=== PATIENT | female | born 1935 | race Caucasian/White ===

== ENCOUNTER → 2016-06-14 | Outpatient (CLI) | payer MEDICARE, BC | END | disposition home or self-care (01) | LOC: LABWHC1 10:43 | PROVIDERS: ATTEND Internal Medicine Cardiovascular Disease | DX: I48.91 Unspecified atrial fibrillation (principal); Z51.81 Encounter for therapeutic drug level monitoring; Z79.899 Other long term (current) drug therapy | CPT/HCPCS: 36415; 80162 ==

== ENCOUNTER 2019-12-10 14:28 | Inpatient (IN) | payer MEDICARE, BC ==
[2019-12-10 15:09] LABS: Basophils # (A) 0.1 k/uL (0-0.2); Basophils % (A) 1 %; Eosinophils # (A) 0.1 k/uL (0-0.7); Eosinophils % (A) 2 %; HCT 36.5 % (34.0-46.0); HGB 12.1 gm/dL (11.4-16.0); Lymphocytes # (A) 0.6 k/uL (1.0-4.8); Lymphocytes % (A) 12 %; MCH 29.9 pg (25.0-35.0); MCHC 33.1 g/dL (31.0-37.0); MCV 90.5 fL (80.0-100.0); Mean Platelet Volume 6.6; Monocytes # (A) 0.3 k/uL (0-1.0); Monocytes % (A) 6 %; Neutrophils # (A) 4.1 k/uL (1.3-7.7); Neutrophils % (A) 79 %; Platelet Count 165 k/uL (150-450); RBC 4.04 m/uL (3.80-5.40); RDW 14.1 % (11.5-15.5); WBC 5.3 k/uL (3.8-10.6)
[2019-12-10 15:19] LABS: ALT 12 U/L (4-34); AST 28 U/L (14-36); African American GFR (CKD) >90 (>60 ml/min/1.73 sqM); Albumin 3.5 g/dL (3.5-5.0); Alkaline Phosphatase 139 U/L (38-126); Anion Gap 7 mmol/L; Blood Urea Nitrogen 7 mg/dL (7-17); Calcium 8.7 mg/dL (8.4-10.2); Carbon Dioxide 24 mmol/L (22-30); Chloride 99 mmol/L (98-107); Glucose 111 mg/dL (74-99); Magnesium 2.1 mg/dL (1.6-2.3); Non-African American GFR(CKD) 78 (>60 ml/min/1.73 sqM); Potassium 4.1 mmol/L (3.5-5.1); Sodium 130 mmol/L (137-145); Total Bilirubin 0.5 mg/dL (0.2-1.3); Total Protein 6.9 g/dL (6.3-8.2)
[2019-12-10 15:30] LABS: Prothrombin Time 10.5 sec (9.0-12.0)
[2019-12-10 15:32] LABS: Partial Thromboplastin Time 19.5 sec (22.0-30.0)
--- NOTE | 2019-12-10 15:55 | ED ---
Chest Pain HPI - General Chief Complaint: Chest Pain Stated Complaint: chest pain Time Seen by Provider: 12/10/19 14:30 Source: patient, EMS Mode of arrival: EMS Limitations: physical limitation - History of Present Illness Initial Comments: 84-year-old female with past medical history of A. fib, rheumatic heart disease who presents to emergency room with reported chest pain and epigastric abdominal pain. Patient reports to left-sided chest wall pain which does not radiate. It is been constant without any provocative factors. Denies history of coronary disease. No associated cough or hemoptysis. No fevers or chills. Patient also reports epigastric abdominal pain which has caused her to have appetite and poor by mouth intake. She denies any nausea or vomiting. Also reports to constipation without having a bowel movement in 3 days. Son reports to history of peptic ulcer disease. Denies any black or tarry stools. Reports to decrease in urination. No other alleviating, precipitating or modifying factors - Related Data Home Medications Medication Instructions Recorded Confirmed Digoxin [Digitek] 125 mcg PO DAILY 09/14/14 12/10/19 Levothyroxine Sodium [Synthroid] 88 mcg PO DAILY 09/14/14 12/10/19 Losartan [Cozaar] 50 mg PO DAILY 09/14/14 12/10/19 Allergies Allergy/AdvReac Type Severity Reaction Status Date / Time dexamethasone [From TobraDex] Allergy Unknown Verified 12/10/19 18:26 olmesartan medoxomil Allergy Dyspnea Verified 12/10/19 18:26 [From Benicar] Penicillins Allergy Rash/Hives Verified 12/10/19 18:26 sulfamethoxazole Allergy Rash/Hives Verified 12/10/19 18:26 [From Bactrim] tobramycin [From TobraDex] Allergy Unknown Verified 12/10/19 18:26 tramadol HCl [From Ultram] Allergy Unknown Verified 12/10/19 18:26 trimethoprim [From Bactrim] Allergy Rash/Hives Verified 12/10/19 18:26 xibornol Allergy Unknown Verified 12/10/19 18:26 Review of Systems ROS Statement: Those systems with pertinent positive or pertinent negative responses have been documented in the HPI. ROS Other: All systems not noted in ROS Statement are negative. EKG Findings - EKG Comments: EKG Findings:: EKG demonstrates normal sinus rhythm with a ventricular rate of 93. UT interval 162. QRS 74. QTC of 425. No acute ST segment elevation or depressions concerning for ischemic changes Past Medical History Past Medical History: Coronary Artery Disease (CAD), Eye Disorder, GERD/Reflux, Thyroid Disorder History of Any Multi-Drug Resistant Organisms: None Reported Past Surgical History: No Surgical Hx Reported Past Anesthesia/Blood Transfusion Reactions: No Reported Reaction Past Psychological History: No Psychological Hx Reported Smoking Status: Never smoker Past Alcohol Use History: None Reported Past Drug Use History: None Reported - Past Family History Father Family Medical History: No Reported History General Exam Limitations: physical limitation General appearance: alert, in no apparent distress Head exam: Present: atraumatic, normocephalic, normal inspection Eye exam: Present: normal appearance, PERRL, EOMI. Absent: scleral icterus, conjunctival injection, periorbital swelling ENT exam: Present: normal exam, mucous membranes moist Neck exam: Present: normal inspection. Absent: tenderness, meningismus, lymphadenopathy Respiratory exam: Present: normal lung sounds bilaterally. Absent: respiratory distress, wheezes, rales, rhonchi, stridor Cardiovascular Exam: Present: regular rate, normal rhythm, normal heart sounds. Absent: systolic murmur, diastolic murmur, rubs, gallop, clicks GI/Abdominal exam: Present: soft, tenderness (epigastric), normal bowel sounds. Absent: distended, guarding, rebound, rigid Extremities exam: Present: normal inspection, full ROM, normal capillary refill. Absent: tenderness, pedal edema, joint swelling, calf tenderness Back exam: Present: normal inspection Neurological exam: Present: alert, oriented X3, CN II-XII intact Psychiatric exam: Present: normal affect, normal mood Skin exam: Present: warm, dry, intact, normal color. Absent: rash Course Vital Signs 12/10/19 12/10/19 12/10/19 14:30 18:11 18:59 Temperature 98.4 F Pulse Rate 96 77 70 Respiratory 18 18 16 Rate Blood Pressure 151/88 152/79 145/69 O2 Sat by Pulse 95 97 100 Oximetry Chest Pain MDM - MDM Upon arrival patient placed into room 3. A thorough history and physical exam was performed. Patient placed on continuous pulse ox and cardiac monitoring. Peripheral IV was established. Patient was started on 75 mL of normal saline per hour. She is requesting something for pain and therefore was given Tylenol. Laboratory studies were conducted. Patient went for CT of her abdomen and pelvis as well as a chest x-ray. Laboratory studies are remarkable for sodium of 138. CT of the patient's abdomen and pelvis demonstrates [id number] inflammatory changes that they gastroduodenal junction involving gastric antrum and first and second portions of the duodenum. I discussed the results with the patient. I did recommend hospital admission for GI consultation and antibiotics. The patient did agree to this. I discussed the case with Dr. Post who accepted admission. Patient currently awaiting a bed on the floor. Disposition Clinical Impression: Chest pain, Abdominal pain, Duodenitis Disposition: ADMITTED IP TO THIS [facility] Condition: Stable Is patient prescribed a controlled substance at d/c from ED?: No Decision to Admit Reason: Admit from EC Decision Date: 12/10/19 Decision Time: 17:50
--- NOTE | 2019-12-10 16:09 | CT ---
EXAMINATION TYPE: CT abdomen pelvis w con DATE OF EXAM: 12/10/2019 HISTORY: Upper Abdominal pain with constipation CT DLP: 636.7mGycm Automated Exposure Control for Dose Reduction was Utilized. CONTRAST: CT scan of the abdomen and pelvis is performed without oral but with IV Contrast, patient injected wi th 100 mL of Isovue 300. COMPARISON: None. FINDINGS: LUNG BASES: No significant abnormality is appreciated. LIVER/GB: Cholecystectomy clips. Liver somewhat small in size with lobulated contour particularly lef t hepatic lobe, underlying cirrhosis is suspected. No surrounding ascites. Main portal vein patent an d not dilated. PANCREAS: No significant abnormality is seen. SPLEEN: No significant abnormality is seen. ADRENALS: No significant abnormality is seen. KIDNEYS: Symmetrical medullary uptake and excretion without hydronephrosis seen bilaterally. BOWEL: Small varices near diaphragmatic hiatus or gastroesophageal junction. Stomach poorly distended and thus suboptimally evaluated. Moderate gastric wall thickening is present. There is more severe w all thickening in the antrum extending into the first and second portion of the duodenal sweep. There is moderate ill-defined fluid and fat stranding a level of oc hepatis near gastroduodenal junctio n. No free air seen. No well-formed fluid collection or drainable abscess noted. Third and fourth por tion of duodenum appear more normal. No suspicious small or large bowel dilatation otherwise seen. Fe sandra filled prominent cecum noted in the right pelvis.. UTERUS/ADNEXA: Uterus surgically absent or markedly atrophic. Scattered pelvic phleboliths. LYMPH NODES: No greater than 1cm abdominal or pelvic lymph nodes are appreciated. OSSEOUS STRUCTURES: Slight grade 1 anterolisthesis L4 on L5. Spine straightening on sagittal images. Moderate disc space narrowing and vacuum disc phenomenon right L4-L5 level. Mild to moderate disc spa ce narrowing left L5-S1 level. OTHER: Moderate to severe calcified plaque distal abdominal aorta extending into branch vessels. Some ectasia axial image 32. No greater than 3 cm aneurysmal change. IMPRESSION: Moderate to severe inflammatory change at gastroduodenal junction involving gastric antru m and first and second portion of duodenum. No free air seen. No well-formed fluid collection or drai nable abscess noted. Correlate clinically.
[2019-12-10] MEDS ORDERED: ACETAMINOPHEN TAB 500 MG TAB PO STA (16:30)
--- NOTE | 2019-12-10 17:22 | XR ---
EXAMINATION TYPE: XR chest 2V DATE OF EXAM: 12/10/2019 COMPARISON: 11/02/2015 HISTORY: Cough. Chest pain. TECHNIQUE: FINDINGS: Heart is normal. Lungs are clear of consolidation. There are no hilar masses. There is no p leural effusion. There is minimal coarsening of interstitial markings. Bony thorax is intact. There i s possible 1.5 cm nodular density in the left midlung. IMPRESSION: Mild pulmonary fibrotic changes. Lung markings increased compared to old exam. No heart f ailure. Possible new left upper lobe nodule compared to old exam. Shallow oblique views recommended to confir m or exclude a nodule.
[2019-12-10] MEDS ORDERED: metroNIDAZOLE-NS PMX 500 MG in SALINE 1 100ML.BAG IVPB STA (17:42)
[2019-12-10] MEDS ORDERED: cefTRIAXone IN SWFI 1,000 MG/10 ML SYRINGE IVP STA (17:43)
[2019-12-10] MEDS ORDERED: NALOXONE 0.4 MG/ML 1 ML VIAL IV PRN (17:51)
[2019-12-10] MEDS: SODIUM CHLORIDE 0.9% 1,000 ML IV SCH (18:57)
[2019-12-11] MEDS: PIPERACILLIN-TAZOBACTAM 3.375 GM in SODIUM CHLORIDE 0.9% 100 ML IVPB SCH ×3 (01:47→16:22)
--- NOTE | 2019-12-11 02:43 | HP ---
HISTORY AND PHYSICAL CHIEF COMPLAINTS: Chest pain and abdominal pain and constipation. HISTORY OF PRESENT ILLNESS: This 84-year-old woman with a past medical history of multiple medical problems including CAD, history of GERD, hypothyroidism being for Dr. Fair in the outpatient setting complained of chest pain. The pain is mostly on the left side which is localized, sharp in character. The patient also had some abdominal pain and some constipation. A CAT scan of the abdomen was done in the ER which showed moderate to severe inflammatory changes in the gastroduodenal junction involving the gastric antrum, first and second part of the duodenum. The patient was admitted for further evaluation and treatment. There is no history of fever, rigors. No history of headache, loss of consciousness or seizures at this time. PAST MEDICAL HISTORY: History of CAD, eye disorder, GERD, hypothyroidism. MEDICATIONS: Medications prior to admission include home medications are: 1. Digoxin. 2. Folic acid. 3. Levothyroxine. 4. Cozaar. 5. Multivitamins. 6. Narcan. 7. Thiamine. ALLERGIES: DEXAMETHASONE, BENICAR, PENICILLIN, SULFAMETHOXAZOLE, TOBRAMYCIN, ULTRAM, TRIMETHOPRIM, and XIBORNOL. FAMILY HISTORY: No history of heart disease or strokes in the family. SOCIAL HISTORY: No history of smoking. No history of alcohol intake. REVIEW OF SYSTEMS: ENT: Diminished hearing and diminished vision. CARDIOVASCULAR SYSTEM: As mentioned earlier. RESPIRATORY SYSTEM: As mentioned earlier. GI: No nausea, vomiting, diarrhea. : No dysuria. NERVOUS SYSTEM: No numbness or weakness. ALLERGY/IMMUNOLOGY: No asthma or hay fever. MUSCULOSKELETAL: As mentioned earlier. HEMATOLOGY: No history of anemia. ENDOCRINE: As mentioned earlier, hypothyroidism. CONSTITUTIONAL: As mentioned earlier. DERMATOLOGY: Negative. RHEUMATOLOGY: Negative. PSYCHIATRY: As mentioned earlier. PHYSICAL EXAMINATION: The patient is alert and oriented x3. Pulse 70, blood pressure 151/87, respiration 14, temperature 98 degrees, pulse ox 98% on room air. HEENT: Conjunctivae normal. Oral mucosa moist. NECK: No jugular venous distention. No carotid bruit. No lymph node enlargement. CARDIOVASCULAR: S1, S2 muffled. No S3, no S4. RESPIRATORY: Breath sounds diminished at the bases. No rhonchi. No crackles. ABDOMEN: Soft, mild diffuse discomfort on palpation. No guarding. No rigidity. No mass palpable, LEGS: No edema, no swelling. NERVOUS SYSTEM: Higher functions as mentioned earlier. Moves all 4 limbs. No focal motor or sensory deficits. LYMPHATICS: No lymphadenopathy of the neck, axillae or groin. SKIN: No ulcer, rash or bleeding. JOINTS: No active deforming arthropathy. LABORATORY DATA: CBC within normal limits. INR is 1. Sodium is 130. Glucose is 111. ASSESSMENT: 1. Chest pain possible unstable angina possibly musculoskeletal pain. 2. Abdominal pain constipation with moderate to severe inflammatory changes in the gastroduodenal junction involving the gastric antrum and first and second part of the duodenum, possibly gastroduodenitis. Rule out peptic ulcer disease. 3. Hyponatremia. 4. History of coronary artery disease. 5. History of gastroesophageal reflux disease. 6. Hypothyroidism. 7. Remote history of nicotine dependence. 8. FULL CODE. RECOMMENDATIONS AND DISCUSSION: This 84-year-old woman presented with multiple complex medical issues, we will monitor the patient closely. Continue the current medications. Continue symptomatic treatment. Will initiate workup to rule out myocardial infarction, cardiology consultation and troponins. I would also recommend broad-spectrum IV antibiotics. Gastroenterology consultation for the abnormal findings on the CAT scan. I would also recommend surgical evaluation. Otherwise, CT scan of the chest also will be requested. The symptomatic treatment also will be provided. The prognosis guarded because of multiple complex medical issues. Further recommendations to follow. Copy of dictation forwarded to Dr. Fair, who is the primary physician. See orders for details. MMODL / IJN: [id number] /
[2019-12-11 04:42] LABS: Appearance,Urine Clear (Clear); Bilirubin,Urine Negative (Negative); Blood,Urine Negative (Negative); Color,Urine Light Yellow; Glucose,Urine (UA) Negative (Negative); Ketones,Urine Negative (Negative); Leukocyte Esterase,Urine Negative (Negative); Nitrite,Urine Negative (Negative); Protein,Urine Negative (Negative); Specific Gravity,Urine 1.016 (1.001-1.035); Urobilinogen,Urine <2.0 mg/dL (<2.0)
[2019-12-11] MEDS: LEVOTHYROXINE 88 MCG TAB PO SCH (07:09)
[2019-12-11] MEDS ORDERED: DOBUTamine DRIP for NUC MED 500 MG in DEXTROSE/WATER 1 250ML.BAG IV ONE (07:23)
[2019-12-11 07:30] LABS: Basophils # (A) 0.1 k/uL (0-0.2); Basophils % (A) 1 %; Eosinophils # (A) 0.1 k/uL (0-0.7); Eosinophils % (A) 3 %; HCT 34.3 % (34.0-46.0); HGB 11.1 gm/dL (11.4-16.0); Lymphocytes # (A) 0.7 k/uL (1.0-4.8); Lymphocytes % (A) 18 %; MCH 29.3 pg (25.0-35.0); MCHC 32.4 g/dL (31.0-37.0); MCV 90.5 fL (80.0-100.0); Mean Platelet Volume 6.3; Monocytes # (A) 0.3 k/uL (0-1.0); Monocytes % (A) 8 %; Neutrophils # (A) 2.6 k/uL (1.3-7.7); Neutrophils % (A) 67 %; Platelet Count 206 k/uL (150-450); RBC 3.79 m/uL (3.80-5.40); RDW 14.3 % (11.5-15.5); WBC 3.9 k/uL (3.8-10.6)
[2019-12-11 07:44] LABS: Calcium 8.4 mg/dL (8.4-10.2); Digoxin 0.8 ng/mL
[2019-12-11] MEDS: SODIUM CHLORIDE 0.9% 1,000 ML IV SCH (08:26)
[2019-12-11] MEDS: LOSARTAN 50 MG TAB PO SCH (08:34)
[2019-12-11 08:54] LABS: Erythrocyte Sedimentation Rate 35 mm/hr (0-20)
--- NOTE | 2019-12-11 09:45 | P.CRDCN ---
History of Present Illness History of present illness: HISTORY OF PRESENTING ILLNESS This is a pleasant 84-year-old female past medical history significant for paroxysmal atrial fibrillation, dyslipidemia and hypertension. She is not currently on oral anticoagulants. She follows in the office with Dr. Alexander. We have been asked to see in consultation for chest pain. She presented to the hospital with symptoms of left upper quadrant abdominal discomfort that radiated time between the epigastric region in the left precordial region. Her discomfort has been intermittent with no specific aggravating or alleviating factors. She denies associated shortness of breath, dizziness, palpitations, nausea or vomiting. DIAGNOSTICS EKG reveals sinus mechanism left axis deviation with ST depression noted in the precordial leads. Chest xray mild fibrotic changes, no obvious heart failure and possible left upper lobe nodule noted. CT of the abdomen and pelvis reveals moderate to severe inflammatory changes at the gastroduodenal junction. Laboratory reviewed, WBC 3.9, hemoglobin 11.1, platelets 206, ESR 35, sodium 134, potassium 4, creatinine 0.75, magnesium 2.1, cardiac enzymes negative 3 and CRP 13. Current cardiac medications include digoxin 125 g daily and losartan 50 mg daily. Most recent echocardiogram obtained in the office in 2016 reveals preserved LV systolic function with ejection fraction 55%. Most recent stress test performed in the office in 2016 was negative for reversible cardiac ischemia. REVIEW OF SYSTEMS At the time of my exam: CONSTITUTIONAL: Denies fever or chills. CARDIOVASCULAR: Denies chest pain, shortness of breath, orthopnea, PND or palpitations. RESPIRATORY: Denies cough. GASTROINTESTINAL: Denies abdominal pain, diarrhea, constipation, nausea or vomiting. MUSCULOSKELETAL: Denies myalgias. NEUROLOGIC: Denies numbness, tingling or weakness. ENDOCRINE: Denies fatigue, weight change, polydipsia or polyurina. GENITOURINARY: Denies burning, hematuria or urgency with micturation. HEMATOLOGIC: Denies history of anemia or bleeding. PHYSICAL EXAMINATION Blood pressure 153/70 heart rate 77 afebrile and maintaining oxygen saturation on room air. CONSTITUTIONAL: No apparent distress. Frail. HEENT: Head is normocephalic. Pupils are equal, round. Sclerae anicteric. Mucous membranes of the mouth are moist. No JVD. No carotid bruit. CHEST EXAMINATION: Lungs are clear to auscultation. No chest wall tenderness is noted on palpation or with deep breathing. HEART EXAMINATION: Regular rate and rhythm. S1, S2 heard. No murmurs, gallops or rub. ABDOMEN: Soft, nontender. Positive bowel sounds. EXTREMITIES: 2+ peripheral pulses, no lower extremity edema and no calf tenderness. NEUROLOGIC EXAMINATION: Patient is awake, alert and oriented x3. ASSESSMENT Chest pain, atypical for angina. Duodenitis Paroxysmal atrial fibrillation, currently maintaining sinus mechanism. Not currently on long-term anticoagulation. Hypertension Dyslipidemia PLAN An acute coronary event has been ruled out. Obtain 2-D echocardiogram and Doppler study to assess cardiac structure and function. We discussed with the patient undergoing a dobutamine stress echocardiogram to assess for stress-induced ischemia. However the patient states that her age she would prefer medical management regardless of underlying heart disease. We will optimize her medical therapy by initiating aspirin 81 mg daily and atorvastatin 20 mg daily. Consider increasing losartan to 50 mg twice a day if her blood pressure remains elevated. Follow-up in the office closely with Dr. Alexander upon discharge. Ongoing medical management and evaluation of underlying duodenitis and pulmonary nodule. Thank you kindly for this consultation. Nurse Practitioner note has been reviewed, I agree with a documented findings and plan of care. Patient was seen and examined. Past Medical History Past Medical History: Coronary Artery Disease (CAD), Eye Disorder, GERD/Reflux, Thyroid Disorder History of Any Multi-Drug Resistant Organisms: None Reported Past Surgical History: No Surgical Hx Reported Past Anesthesia/Blood Transfusion Reactions: No Reported Reaction Past Psychological History: No Psychological Hx Reported Smoking Status: Former smoker Past Alcohol Use History: None Reported Past Drug Use History: None Reported - Past Family History Father Family Medical History: No Reported History Medications and Allergies Home Medications Medication Instructions Recorded Confirmed Type Digoxin [Digitek] 125 mcg PO DAILY 09/14/14 12/10/19 History Levothyroxine Sodium [Synthroid] 88 mcg PO DAILY 09/14/14 12/10/19 History Losartan [Cozaar] 50 mg PO DAILY 09/14/14 12/10/19 History Allergies Allergy/AdvReac Type Severity Reaction Status Date / Time dexamethasone [From TobraDex] Allergy Unknown Verified 12/10/19 18:26 olmesartan medoxomil Allergy Dyspnea Verified 12/10/19 18:26 [From Benicar] Penicillins Allergy Rash/Hives Verified 12/10/19 18:26 sulfamethoxazole Allergy Rash/Hives Verified 12/10/19 18:26 [From Bactrim] tobramycin [From TobraDex] Allergy Unknown Verified 12/10/19 18:26 tramadol HCl [From Ultram] Allergy Unknown Verified 12/10/19 18:26 trimethoprim [From Bactrim] Allergy Rash/Hives Verified 12/10/19 18:26 xibornol Allergy Unknown Verified 12/10/19 18:26 Physical Exam Vitals: Vital Signs Temp Pulse Pulse Resp BP BP Pulse Ox 12/11/19 08:20 98.2 F 77 14 153/70 99 12/11/19 04:15 97.9 F 72 16 153/72 99 12/10/19 19:25 98 F 70 14 151/87 98 12/10/19 18:59 70 16 145/69 100 12/10/19 18:11 77 18 152/79 97 12/10/19 14:30 98.4 F 96 18 151/88 95 Intake and Output 12/10/19 12/11/19 12/11/19 22:59 06:59 14:59 Output Total 150 600 Balance -150 -600 Output: Urine 150 600 Other: Voiding Method Bedside Commode Bedside Commode Weight 47.627 kg Results 12/11/19 06:43 12/11/19 06:43 Cardiac Enzymes 12/10/19 12/10/19 12/10/19 Range/Units 14:59 14:59 18:38 AST 28 (14-36) U/L Troponin I <0.012 <0.012 (0.000-0.034) ng/mL 12/10/19 Range/Units 21:32 AST (14-36) U/L Troponin I <0.012 (0.000-0.034) ng/mL Coagulation 12/10/19 Range/Units 14:59 PT 10.5 (9.0-12.0) sec APTT 19.5 L (22.0-30.0) sec CBC 12/10/19 12/11/19 Range/Units 14:59 06:43 WBC 5.3 3.9 (3.8-10.6) k/uL RBC 4.04 3.79 L (3.80-5.40) m/uL Hgb 12.1 11.1 L (11.4-16.0) gm/dL Hct 36.5 34.3 (34.0-46.0) % Plt Count 165 206 (150-450) k/uL Comprehensive Metabolic Panel 12/10/19 12/11/19 Range/Units 14:59 06:43 Sodium 130 L 134 L (137-145) mmol/L Potassium 4.1 4.0 (3.5-5.1) mmol/L Chloride 99 104 (98-107) mmol/L Carbon Dioxide 24 27 (22-30) mmol/L BUN 7 6 L (7-17) mg/dL Creatinine 0.71 0.75 (0.52-1.04) mg/dL Glucose 111 H 84 (74-99) mg/dL Calcium 8.7 8.4 (8.4-10.2) mg/dL AST 28 (14-36) U/L ALT 12 (4-34) U/L Alkaline Phosphatase 139 H (38-126) U/L Total Protein 6.9 (6.3-8.2) g/dL Albumin 3.5 (3.5-5.0) g/dL Current Medications Generic Name Dose Route Start Last Admin Trade Name Freq PRN Reason Stop Dose Admin Digoxin 125 mcg 12/11/19 09:00 Digoxin 125 Mcg Tab PO DAILY DESHAUN Folic Acid 1 mg 12/11/19 09:00 Folic Acid 1 Mg Tab PO DAILY EDSHAUN Heparin Sodium (Porcine) 5,000 unit 12/11/19 09:00 Heparin Sodium,Porcine 5,000 Unit/Ml 1 Ml Vial SQ Q12HR DESHAUN Sodium Chloride 1,000 mls @ 75 mls/hr 12/10/19 18:00 12/11/19 08:26 Saline 0.9% IV 75 mls/hr .[id number] DESHAUN Administration Piperacillin Sod/Tazobactam 100 mls @ 25 mls/hr 12/11/19 00:00 12/11/19 01:47 Sod 3.375 gm/ Sodium Chloride IVPB 25 mls/hr Q8HR DESHAUN Administration Dobutamine HCl/Dextrose 500 mg 250 mls @ 14.288 mls/hr 12/11/19 07:23 / IV Solution IV 12/12/19 00:52 .[id number] ONE Protocol 10 MCG/KG/MIN Levothyroxine Sodium 88 mcg 12/11/19 06:30 12/11/19 07:09 Levothyroxine 88 Mcg Tab PO 88 mcg DAILY@0630 DESHAUN Administration Losartan Potassium 50 mg 12/11/19 09:00 12/11/19 08:34 Losartan 50 Mg Tab PO 50 mg DAILY DESHAUN Administration Multivitamins 1 each 12/11/19 09:00 Multivitamins, Thera 1 Each Tab PO DAILY DESHAUN Naloxone HCl 0.2 mg 12/10/19 17:51 Naloxone 0.4 Mg/Ml 1 Ml Vial IV Q2M PRN Opioid Reversal Thiamine HCl 100 mg 12/11/19 09:00 Thiamine 100 Mg Tab PO DAILY DESHAUN Intake and Output 12/10/19 12/11/19 12/11/19 22:59 06:59 14:59 Output Total 150 600 Balance -150 -600 Output: Urine 150 600 Other: Voiding Method Bedside Commode Bedside Commode Weight 47.627 kg 12/11/19 06:43 12/11/19 06:43
[2019-12-11] MEDS: DIGOXIN 125 MCG TAB PO SCH (10:00)
[2019-12-11] MEDS: ATORVASTATIN 20 MG TAB PO SCH (10:00)
[2019-12-11] MEDS: HEPARIN SODIUM,PORCINE 5,000 UNIT/ML 1 ML VIAL SQ SCH ×2 (10:00→20:36)
[2019-12-11] MEDS: ASPIRIN 81 MG PO SCH (10:00)
[2019-12-11] MEDS: FOLIC ACID 1 MG TAB PO SCH (10:01)
[2019-12-11] MEDS: MULTIVITAMINS, THERA 1 EACH TAB PO SCH (10:01)
[2019-12-11] MEDS: THIAMINE 100 MG TAB PO SCH (10:01)
[2019-12-11 10:09] LABS: Cholesterol 152 mg/dL (<200); HDL Cholesterol 44 mg/dL (40-60); LDL Cholesterol,Calculated 90 mg/dL (0-99); Triglycerides 88 mg/dL (<150)
--- NOTE | 2019-12-11 10:16 | ECHOF ---
Referral Reason:cp MEASUREMENTS -------- HEIGHT: 157.5 cm WEIGHT: 47.6 kg BP: IVSd: 1.2 cm (0.6 - 1.1) LVIDd: 3.0 cm (3.9 - 5.3) LVPWd: 1.1 cm (0.6 - 1.1) IVSs: 1.7 cm LVIDs: 1.9 cm LVPWs: 1.8 cm Ao Diam: 2.6 cm (2.0 - 3.7) AV Cusp: 1.4 cm (1.5 - 2.6) LA Diam: 2.4 cm (2.7 - 3.8) MV E Toño: 0.58 m/s MV DecT: 283 ms MV A Toño: 0.84 m/s MV E/A Ratio: 0.69 RAP: 5.00 mmHg RVSP: 23.25 mmHg FINDINGS -------- This was a technically adequate study. The left ventricular size is normal. There is mild concentric left ventricular hypertrophy. Overa ll left ventricular systolic function is normal with, an EF between 55 - 60 %. The right ventricle is normal in size. The left atrial size is normal. The right atrial size is normal. Aortic valve is trileaflet and is mildly thickened. The mitral valve is normal. The mitral valve leaflets are mildly thickened. Mild mitral regurgita tion is present. The tricuspid valve appears structurally normal. Trace tricuspid regurgitation present. Right wes tricular systolic pressure is normal at < 35 mmHg. There is no pulmonic regurgitation present. The aortic root size is normal. IVC Not well visulized. There is no pericardial effusion. CONCLUSIONS -------- 1. The left ventricular size is normal. 2. There is mild concentric left ventricular hypertrophy. 3. Overall left ventricular systolic function is normal with, an EF between 55 - 60 %. 4. Aortic valve is trileaflet and is mildly thickened. 5. The mitral valve leaflets are mildly thickened. 6. Mild mitral regurgitation is present. 7. Trace tricuspid regurgitation present. 8. There is no pericardial effusion. [employer]: Hannah Urbano [facility]
--- NOTE | 2019-12-11 11:07 | CT ---
EXAMINATION TYPE: CT chest wo con DATE OF EXAM: 12/11/2019 COMPARISON: None HISTORY: Chest pain CT DLP: 153.9 mGycm, Automated exposure control for dose reduction was used. CONTRAST: Performed injected with 0 mL of Isovue 300. TECHNIQUE: Axial images were obtained at 5 mm thick sections. Reconstructed images are reviewed on [employer] computer in the coronal plane. FINDINGS: Some mild scarring at the lung apices appears to be present. No enlarged mediastinal or hilar adenopathy is evident. The ascending aorta diameter at the level o f the main pulmonary artery is 3.7 cm. The main pulmonary artery diameter at the bifurcation is 2.2 cm. Calcifications through the aorta. Coronary artery calcification is also present. Limited CT sections are obtained through the upper abdomen. There may be some thickening of the duode num. Correlate for duodenitis. Gallbladder is surgically absent. IMPRESSIONS: 1. No suspicious acute CT chest changes. 2. There appears to be some thickening of the duodenum. Correlate for duodenitis.. Please see CT repo rt CT abdomen pelvis of 12/10/2019
[2019-12-11] MEDS: polyethylene glycoL 3350 17 GM POWD.PACK PO SCH (11:32)
[2019-12-11] MEDS: PANTOPRAZOLE 40 MG TABLET PO SCH (16:23)
--- NOTE | 2019-12-11 20:00 | CONS ---
CONSULTATION DATE OF SERVICE: December 11, 2019. REQUESTING PHYSICIAN: Dr. Fair. REASON FOR CONSULTATION: Epigastric pain and chest pain. HISTORY OF PRESENT ILLNESS: The patient is an 84-year-old pleasant white female who was admitted to the hospital because of atypical chest pain as well as some epigastric pain that started 2 days ago. The pain continued to progressively get worse. She became somewhat nauseated but no emesis. She was seen by Cardiology as she has history of hypertension, hyperlipidemia, and atrial fibrillation, not on any anticoagulation. She was recommended to have a stress test, but she refused this today and hence Cardiology recommended medical management. In the meantime, when she came to the ER, she did have a CT of the abdomen and pelvis done that showed moderate to severe inflammation at the gastric duodenal junction. Hence we are consulted for this issue. The patient denies any prior history of peptic ulcer disease. Denies any recent NSAID use. This morning she is feeling better. The chest pain has resolved. She still has some epigastric discomfort. PAST MEDICAL HISTORY: Significant for hypertension, hyperlipidemia, atrial fibrillation, hypothyroidism. MEDICATIONS: Medications at home: Synthroid and Digitek. ALLERGIES: BACTRIM, ULTRAM, BENICAR, TOBRADEX, AND PENICILLIN. SOCIAL HISTORY: No smoking. No alcohol use. FAMILY HISTORY: Unremarkable. REVIEW OF SYSTEMS: CARDIOPULMONARY: She did have some chest pain but no shortness of breath. : No dysuria or hematuria. MUSCULOSKELETAL unremarkable. SKIN unremarkable. ENDOCRINE unremarkable. PSYCHIATRIC unremarkable. NEUROLOGY: Unremarkable. ENT/VISION: Unremarkable. CONSTITUTIONAL: No recent weight loss. No fever, chills, night sweats. NEUROLOGY: Mild dementia. PAST SURGICAL HISTORY: Unremarkable. PHYSICAL EXAMINATION: She appears comfortable. No apparent distress. Vital signs stable. Blood pressure 132/86, pulse rate 85 per minute, pulse ox 98. HEENT examination unremarkable. Conjunctivae pink. Sclerae anicteric. Oral cavity no lesions. NECK no JVD. No lymph node enlargement. CHEST was clear to auscultation. HEART: Regular rate and rhythm. ABDOMEN: Soft. There was mild tenderness in the epigastric area. Rest of the abdomen was benign. Bowel sounds are positive. No organomegaly. EXTREMITIES: No pedal edema. SKIN no rashes. NEUROLOGIC: Alert and oriented x3. No focal deficits. LABS: From today WBC 3.9, hemoglobin 11.1, platelets normal. Basic metabolic panel is within normal limits. ALT/AST, T-bilirubin and alkaline phosphatase are normal. CT abdomen showed mild to moderate to severe inflammatory changes at the gastric duodenal junction. Rule out peptic ulcer disease. IMPRESSION: 1. This is a patient who presents to the hospital with chest pain as well as epigastric pain that started yesterday and symptoms currently have much improved. She was seen by Cardiology who recommended a stress test, but patient refused it at this time. Troponins negative. CT scan of the abdomen showed moderate to severe thickening of the gastric duodenal junction suspicious for peptic ulcer disease. The patient clinically has improved. Hemoglobin stable at 11.8 g/dL. 2. History of hypertension. 3. History of hyperlipidemia. RECOMMENDATIONS: 1. Start on Protonix 40 mg daily. 2. Clear liquid diet. 3. Proceed with an upper endoscopy tomorrow. I discussed with the patient benefits and complications of the procedure and she is agreeable to it. Thank you for this consultation. MMROMANL / SHANIKAN: [id number] /
--- NOTE | 2019-12-11 21:44 | PN ---
PROGRESS NOTE DATE OF SERVICE: 12/11/2019. This 84-year-old woman was admitted with left-sided chest pain and has abdominal discomfort. Patient had significant CT scan abnormalities including x-rays with thickening of the gastric duodenal junction and duodenum, indicating possibly gastric duodenitis or even peptic ulcer disease. The patient was started on broad-spectrum IV antibiotics. Cardiology is also following the patient regarding the chest pain and stress test has been recommended. Gastroenterology has recommended Endoscopies. The overall prognosis remains extremely guarded in this elderly individual with the above-mentioned findings and because of that reason, I would strongly recommend the patient to be admitted at least for more than 2 full nights as a full admit to evaluate and treat the above-mentioned life-threatening medical conditions. We will await the results from the solutions delivery consultant. Otherwise, other than that, once again, the patient will require more than 2 nights to diagnose and treat above-mentioned medical issues, which could not be done as an outpatient, so once again recommend full admit. See orders for further details. The patient is on IV Zosyn at this time. MMODL / IJN: [id number] /
--- NOTE | 2019-12-11 21:44 | PN ---
PROGRESS NOTE DATE OF SERVICE: 12/11/2019 This 84-year-old woman was admitted with chest pain, abdominal discomfort, also had abnormal CT scan findings about thickening of the around the duodenal and gastroduodenal junction. Cardiology saw the patient and recommend a stress test, but the patient apparently refused it. A 2D echo with Doppler showed ejection fraction 50 to 60% and minimal valvular abnormalities. A D-dimer was not available. Chest CT scan showed no suspicious changes. Some thickening of the duodenum was also noted. Gastroenterology following the patient closely. Past medical history reviewed. REVIEW OF SYSTEMS: Cardiovascular system: As mentioned earlier. Respiratory: As mentioned earlier. GI: As mentioned earlier. : No nausea or vomiting. NERVOUS SYSTEM: No numbness or weakness. CURRENT MEDICATIONS: Aspirin 81 mg p.o. daily Lipitor, Lanoxin, folic acid, heparin, lactated Ringer's, multivitamins, Narcan, Protonix and Zosyn. Doses reviewed. PHYSICAL EXAM: Patient is alert and oriented x3. Pulse is 77, blood pressure 150/70, respiration 14, temperature 98.2, pulse ox 99% on room air. HEENT is conjunctivae normal. NECK: No JVD. CARDIOVASCULAR: S1, S2 muffled. RESPIRATIONS: Breath sounds diminished in the bases. A few scattered rhonchi and crackles. ABDOMEN: Soft, nontender. No mass palpable. Minimal discomfort in the left upper abdomen. LEGS are no edema. No swelling. NERVOUS SYSTEM: No focal deficits. LABS: Hemoglobin 11.1. ESR is 35. Sodium is 134, and C-reactive protein is 13. Lipid panel is normal. Digoxin is normal. ASSESSMENT: 1. Chest pain, possible unstable angina versus musculoskeletal pain. 2. Abdominal pain and constipation with moderate severe inflammatory changes in the gastroduodenal junction involving the gastric antrum and the first and second part of the duodenum, possibly gastric duodenitis, rule out peptic ulcer disease. 3. Hyponatremia. 4. History of coronary artery disease. 5. History of gastroesophageal reflux disease. 6. Hypothyroidism. 7. Remote history of nicotine dependence. 8. FULL CODE. RECOMMENDATIONS AND DISCUSSION: In this 84-year-old woman who presented with multiple complex medical issues, we will monitor the patient closely. Continue the current medications and symptomatic treatment as mentioned. As mentioned earlier, the patient refused stress test. Treat the patient medically. Otherwise, broad-spectrum IV antibiotics for the abnormal CT scan findings. We will follow the patient closely with Gastroenterology for possible endoscopes. Otherwise, prognosis extremely guarded in this elderly individual who is probably not very keen on doing further and extensive evaluations or interventions, but the patient is apparently willing for endoscopy at this time. Further recommendations to follow. MMROMANL / SHANIKAN: [id number] /
[2019-12-12] MEDS: SODIUM CHLORIDE 0.9% 1,000 ML IV SCH ×2 (00:21→15:07)
[2019-12-12] MEDS: PIPERACILLIN-TAZOBACTAM 3.375 GM in SODIUM CHLORIDE 0.9% 100 ML IVPB SCH ×3 (00:35→17:03)
[2019-12-12] MEDS ORDERED: LIDOCAINE 1% (10MG/ML) FOR IV START INTRADERMA PRN (05:00)
[2019-12-12] MEDS ORDERED: LACTATED RINGERS 1,000 ML IV SCH (05:00)
[2019-12-12] MEDS: LEVOTHYROXINE 88 MCG TAB PO SCH (05:59)
[2019-12-12 06:51] LABS: Basophils % (A) 1 %; Eosinophils # (A) 0.2 k/uL (0-0.7); Eosinophils % (A) 3 %; HCT 30.9 % (34.0-46.0); HGB 10.2 gm/dL (11.4-16.0); Lymphocytes # (A) 0.9 k/uL (1.0-4.8); Lymphocytes % (A) 20 %; MCHC 33.1 g/dL (31.0-37.0); MCV 90.5 fL (80.0-100.0); Mean Platelet Volume 6.5; Monocytes # (A) 0.3 k/uL (0-1.0); Monocytes % (A) 7 %; Neutrophils # (A) 3.2 k/uL (1.3-7.7); Neutrophils % (A) 68 %; Platelet Count 196 k/uL (150-450); RBC 3.41 m/uL (3.80-5.40); RDW 14.6 % (11.5-15.5); WBC 4.7 k/uL (3.8-10.6)
[2019-12-12 07:02] LABS: Calcium 7.7 mg/dL (8.4-10.2); Potassium 3.7 mmol/L (3.5-5.1)
[2019-12-12] MEDS: DIGOXIN 125 MCG TAB PO SCH (09:23)
[2019-12-12] MEDS: PANTOPRAZOLE 40 MG TABLET PO SCH ×2 (09:23→17:14)
[2019-12-12] MEDS: HEPARIN SODIUM,PORCINE 5,000 UNIT/ML 1 ML VIAL SQ SCH ×2 (09:23→20:44)
--- NOTE | 2019-12-12 10:46 | P.PN ---
Subjective Progress Note Date: 12/12/19 CHIEF COMPLAINT: Chest pain HISTORY OF PRESENT ILLNESS: Patient examined this morning at the bedside. She denies chest pain or shortness of breath. She states she is tired and did not sleep well yesterday. She is scheduled for EGD today. Blood pressure stable this morning at 113/68. Patient underwent echocardiogram yesterday revealing ejection fraction between 55 and 60%, mild mitral regurgitation, and trace tricuspid regurgitation. PHYSICAL EXAM: VITAL SIGNS: Reviewed. GENERAL: Well-developed in no acute distress. NECK: Supple. No JVD or thyromegaly LUNGS: Respirations even and unlabored. Lungs essentially clear to auscultation bilaterally. HEART: Regular rate and rhythm. S1 and S2 heard. EXTREMITIES: Normal range of motion. No clubbing or cyanosis. Peripheral pulses intact. No lower extremity edema ASSESSMENT: Chest pain, atypical for angina. Duodenitis Paroxysmal atrial fibrillation, currently maintaining sinus mechanism. Not currently on long-term anticoagulation. Hypertension Dyslipidemia PLAN: Discussed Dobutamine stress echocardiogram to assess for stress-induced ischemia yesterday. However patient declined to have stress test performed. Continue current medical management. Continue telemetry monitoring and blood pressure monitoring. Patient to undergo EGD today with Dr. Romano Patient is stable for discharge from a cardiac standpoint. We will defer to internal medicine. We will sign off. Nurse practitioner note has been reviewed by physician. Signing provider agrees with the documented findings, assessment, and plan of care. Objective - Vital Signs Vital signs: Vital Signs Temp 98.1 F 12/12/19 08:18 Pulse 85 12/12/19 08:18 Resp 16 12/12/19 08:18 BP 113/68 12/12/19 08:18 Pulse Ox 98 12/12/19 08:18 Intake & Output 12/11/19 12/12/19 12/12/19 18:59 06:59 18:59 Intake Total 200 100 Output Total 575 Balance 200 -475 Intake: Oral 200 100 Output: Urine 575 Other: Voiding Method Bedside Commode Bedside Commode # Voids 2 1 - Labs CBC & Chem 7: 12/12/19 06:26 12/12/19 06:26 Labs: Abnormal Lab Results - Last 24 Hours (Table) 12/12/19 12/12/19 Range/Units 06:26 06:26 RBC 3.41 L (3.80-5.40) m/uL Hgb 10.2 L (11.4-16.0) gm/dL Hct 30.9 L (34.0-46.0) % Lymphocytes # 0.9 L (1.0-4.8) k/uL Sodium 134 L (137-145) mmol/L Calcium 7.7 L (8.4-10.2) mg/dL Microbiology - Last 24 Hours (Table) 12/10/19 18:40 Blood Culture - Preliminary Blood No Growth after 24 hours
[2019-12-12] MEDS ORDERED: PROPOFOL 10 MG/ML 20 ML VIAL IV ONE (14:27)
[2019-12-12] MEDS ORDERED: LIDOCAINE 1% INJ 10MG/ML (20 ML MDV) ONE (14:27)
[2019-12-12] MEDS ORDERED: IV FLUID CONTINUATION 1,000 ML IV ONE (14:29)
--- NOTE | 2019-12-12 14:39 | P.PCN ---
Date of Procedure: 12/12/19 Procedure(s) Performed: BRIEF HISTORY: Patient is 84-year-old, pleasant, white female scheduled for an upper endoscopy as a part of evaluation of epigastric and atypical chest pain of [address] of abdomen showed moderate to severe thickening of the gastroduodenal junction and hence he scheduled for an upper endoscopy to evaluate for peptic ulcer disease. PROCEDURE PERFORMED: Esophagogastroduodenoscopy biopsy. PREOPERATIVE DIAGNOSIS: Epigastric pain and chest Pain. IV sedation per anesthesia. PROCEDURE: After informed consent was obtained, the patient was brought into the endoscopy unit. IV sedation was administered by Anesthesia under continuous monitoring. Initially the Olympus GIF-140 video endoscope was inserted into the mouth. Esophagus intubated without any difficulty. It was gradually advanced into the stomach and duodenum and carefully examined. IN THE BULB OF THE DUODENUM THERE WAS A CIRCUMFERENTIAL LARGE ULCERATION IDENTIFIED WITH NO ACTIVE BLEEDING.The second part of the duodenum appeared normal. The scope at this time was withdrawn to the stomach, adequately insufflated with air, and upon careful examination, mucosa of the antrum, gASTRITIS AND BIOPSIES WERE DONE FROM THIS AREA. tHE body, cardia and the fundus appeared normal. The scope was then withdrawn into the esophagus. SMALL HIATAL HERNIA NOTED. The GE junction was located at 39 cm from the incisors. The esophagus appeared normal. There were no erosions or ulcerations seen and the patient tolerated the procedure well. IMPRESSION: 1. Circumferential duodenal bulbar ulcer with no active bleeding 2..Small hiatal hernia and LA grade a reflux esophagitis RECOMMENDATIONS: The findings of this examination were discussed with the patient as well as a family. She will advised to follow with the biopsy results. She'll continue with Protonix 40 mg twice daily and avoid NSAIDs.
--- NOTE | 2019-12-12 15:53 | PN ---
PROGRESS NOTE DATE OF SERVICE: 12/12/2019 This 84-year-old woman who was admitted with chest pain, also had abdominal symptoms. Patient also had abdominal CT scan also. Surgical evaluation has been sought. No chest pain. No palpitations. No fever. The patient is on broad-spectrum IV antibiotics. PHYSICAL EXAMINATION: Alert and oriented x2. Pulse 85. Blood pressure 130/60, respirations 16, temperature 98.1, pulse ox 98% on room air. HEENT: Conjunctivae normal. NECK: No JVD. CARDIOVASCULAR: S1, S2 muffled. RESPIRATORY: Breath sounds diminished in the bases. A few scattered rhonchi. No crackles. ABDOMEN: Soft, nontender. No guarding. No rigidity. No mass palpable. LEGS: No edema. No swelling. NERVOUS SYSTEM: No focal deficits. LABS: WBC 4.2, hemoglobin 10.2, sodium is 134 and CRP is 13. ASSESSMENT: 1. Chest pain, possible unstable angina versus musculoskeletal pain. 2. Abdominal pain and constipation with moderate severe inflammatory changes in the gastric duodenal junction involving the gastric antrum and 1st the 2nd part of the duodenum, possibly gastric duodenitis. Rule out peptic ulcer disease. 3. Hyponatremia. 4. History of coronary artery disease. 5. History of gastroesophageal reflux disease. 6. Hypothyroidism. 7. Remote history of nicotine dependence. 8. FULL CODE. RECOMMENDATIONS AND DISCUSSION: In this 84-year-old woman who presented with multiple complex medical issues, we will monitor the patient closely, continue the current medications, management and symptomatic treatment. Medical treatment recommended by Cardiology. Patient refused stress test. I would recommend continue with empiric antibiotics. Closely follow with Gastroenterology and surgery. Guarded prognosis. Further recommendations to follow. MMODL / IJN: [id number] /
[2019-12-12] MEDS: LOSARTAN 50 MG TAB PO SCH (15:56)
[2019-12-12] MEDS: ATORVASTATIN 20 MG TAB PO SCH (15:56)
[2019-12-12] MEDS: FOLIC ACID 1 MG TAB PO SCH (15:56)
[2019-12-12] MEDS: MULTIVITAMINS, THERA 1 EACH TAB PO SCH (15:56)
[2019-12-12] MEDS: THIAMINE 100 MG TAB PO SCH (15:56)
[2019-12-12] MEDS: ASPIRIN 81 MG PO SCH (17:14)
[2019-12-12] MEDS: polyethylene glycoL 3350 17 GM POWD.PACK PO SCH (17:14)
[2019-12-13] MEDS: SODIUM CHLORIDE 0.9% 1,000 ML IV SCH ×2 (00:33→20:10)
[2019-12-13] MEDS: PIPERACILLIN-TAZOBACTAM 3.375 GM in SODIUM CHLORIDE 0.9% 100 ML IVPB SCH ×3 (00:33→16:27)
[2019-12-13] MEDS: PANTOPRAZOLE 40 MG TABLET PO SCH ×2 (07:00→16:39)
[2019-12-13] MEDS: LEVOTHYROXINE 88 MCG TAB PO SCH (07:00)
[2019-12-13 07:49] LABS: Basophils % (A) 1 %; Eosinophils # (A) 0.2 k/uL (0-0.7); Eosinophils % (A) 4 %; HCT 31.4 % (34.0-46.0); HGB 9.9 gm/dL (11.4-16.0); Lymphocytes # (A) 0.8 k/uL (1.0-4.8); Lymphocytes % (A) 20 %; MCHC 31.4 g/dL (31.0-37.0); MCV 92.4 fL (80.0-100.0); Mean Platelet Volume 7.1; Monocytes # (A) 0.3 k/uL (0-1.0); Monocytes % (A) 6 %; Neutrophils # (A) 2.7 k/uL (1.3-7.7); Neutrophils % (A) 66 %; Platelet Count 179 k/uL (150-450); RDW 14.5 % (11.5-15.5); WBC 4.1 k/uL (3.8-10.6)
[2019-12-13 08:04] LABS: Calcium 7.7 mg/dL (8.4-10.2); Potassium 3.6 mmol/L (3.5-5.1)
--- NOTE | 2019-12-13 09:23 | P.GSCN ---
History of Present Illness Consult date: 12/13/19 Reason for Consult: Duodenal ulcer History of present illness: 74-year-old female who was admitted to the emergency room with complaints of abd ominal pain. Patient was worked up found have evidence of duodenal ulcer. She underwent EGD yesterday. Patient is currently tolerating some soft diet. She is edentulous and does not have her teeth with her. She wished to go home. Past Medical History Past Medical History: Coronary Artery Disease (CAD), Eye Disorder, GERD/Reflux, Thyroid Disorder History of Any Multi-Drug Resistant Organisms: None Reported Past Surgical History: No Surgical Hx Reported Past Anesthesia/Blood Transfusion Reactions: No Reported Reaction Past Psychological History: No Psychological Hx Reported Smoking Status: Never smoker Past Alcohol Use History: None Reported Past Drug Use History: None Reported - Past Family History Father Family Medical History: No Reported History Medications and Allergies Home Medications Medication Instructions Recorded Confirmed Type Digoxin [Digitek] 125 mcg PO DAILY 09/14/14 12/10/19 History Levothyroxine Sodium [Synthroid] 88 mcg PO DAILY 09/14/14 12/10/19 History Losartan [Cozaar] 50 mg PO DAILY 09/14/14 12/10/19 History Allergies Allergy/AdvReac Type Severity Reaction Status Date / Time dexamethasone [From TobraDex] Allergy Unknown Verified 12/10/19 18:26 olmesartan medoxomil Allergy Dyspnea Verified 12/10/19 18:26 [From Benicar] Penicillins Allergy Rash/Hives Verified 12/10/19 18:26 sulfamethoxazole Allergy Rash/Hives Verified 12/10/19 18:26 [From Bactrim] tobramycin [From TobraDex] Allergy Unknown Verified 12/10/19 18:26 tramadol HCl [From Ultram] Allergy Unknown Verified 12/10/19 18:26 trimethoprim [From Bactrim] Allergy Rash/Hives Verified 12/10/19 18:26 xibornol Allergy Unknown Verified 12/10/19 18:26 Surgical - Exam Vital Signs Temp Pulse Resp BP Pulse Ox 98.4 F 96 18 151/88 95 12/10/19 14:30 12/10/19 14:30 12/10/19 14:30 12/10/19 14:30 12/10/19 14:30 - General well developed, no distress - Eyes PERRL - Abdomen Minimal epigastric tenderness Abdomen: soft Results - Labs 12/13/19 07:20 12/13/19 07:20 Abnormal Lab Results - Last 24 Hours (Table) 12/13/19 12/13/19 Range/Units 07:20 07:20 RBC 3.40 L (3.80-5.40) m/uL Hgb 9.9 L (11.4-16.0) gm/dL Hct 31.4 L (34.0-46.0) % Lymphocytes # 0.8 L (1.0-4.8) k/uL Chloride 110 H (98-107) mmol/L Calcium 7.7 L (8.4-10.2) mg/dL Microbiology - Last 24 Hours (Table) 12/10/19 18:40 Blood Culture - Preliminary Blood No Growth after 48 hours Diabetes panel 12/13/19 Range/Units 07:20 Sodium 137 (137-145) mmol/L Potassium 3.6 (3.5-5.1) mmol/L Chloride 110 H (98-107) mmol/L Carbon Dioxide 23 (22-30) mmol/L BUN 7 (7-17) mg/dL Creatinine 0.78 (0.52-1.04) mg/dL Glucose 83 (74-99) mg/dL Calcium 7.7 L (8.4-10.2) mg/dL Calcium panel 12/13/19 Range/Units 07:20 Calcium 7.7 L (8.4-10.2) mg/dL Pituitary panel 12/13/19 Range/Units 07:20 Sodium 137 (137-145) mmol/L Potassium 3.6 (3.5-5.1) mmol/L Chloride 110 H (98-107) mmol/L Carbon Dioxide 23 (22-30) mmol/L BUN 7 (7-17) mg/dL Creatinine 0.78 (0.52-1.04) mg/dL Glucose 83 (74-99) mg/dL Calcium 7.7 L (8.4-10.2) mg/dL Adrenal panel 12/13/19 Range/Units 07:20 Sodium 137 (137-145) mmol/L Potassium 3.6 (3.5-5.1) mmol/L Chloride 110 H (98-107) mmol/L Carbon Dioxide 23 (22-30) mmol/L BUN 7 (7-17) mg/dL Creatinine 0.78 (0.52-1.04) mg/dL Glucose 83 (74-99) mg/dL Calcium 7.7 L (8.4-10.2) mg/dL Assessment and Plan Assessment: New diagnosis of duodenal ulcer. Patient should have her calorie count observed. Is unclear she is able to tolerate enough diet. We will follow with you.
[2019-12-13] MEDS: THIAMINE 100 MG TAB PO SCH (09:39)
[2019-12-13] MEDS: ATORVASTATIN 20 MG TAB PO SCH (09:39)
[2019-12-13] MEDS: LOSARTAN 50 MG TAB PO SCH (09:39)
[2019-12-13] MEDS: DIGOXIN 125 MCG TAB PO SCH (09:39)
[2019-12-13] MEDS: ASPIRIN 81 MG PO SCH (09:39)
[2019-12-13] MEDS: FOLIC ACID 1 MG TAB PO SCH (09:39)
[2019-12-13] MEDS: MULTIVITAMINS, THERA 1 EACH TAB PO SCH (09:39)
[2019-12-13] MEDS: polyethylene glycoL 3350 17 GM POWD.PACK PO SCH (09:40)
[2019-12-13] MEDS: HEPARIN SODIUM,PORCINE 5,000 UNIT/ML 1 ML VIAL SQ SCH ×2 (09:40→20:13)
--- NOTE | 2019-12-13 10:34 | PN ---
PROGRESS NOTE DATE OF DICTATION: December 13, 2019 The patient is an 84-year-old pleasant white female admitted to hospital with epigastric and atypical chest pain. She had an upper endoscopy done yesterday that revealed a large 3-4 cm circumferential duodenal bulbar ulcer with mild narrowing of the duodenal lumen. The patient denies any bleeding. No abdominal pain. She is feeling better. She remains on Protonix 40 mg twice daily. PHYSICAL EXAMINATION: Appears comfortable. No apparent distress. VITAL SIGNS: Stable. Blood pressure is 128/88, pulse rate 86 per minute and afebrile. HEENT examination unremarkable. Conjunctivae pink. Sclerae anicteric. Oral cavity no lesions. NECK no JVD. No lymph node enlargement. Chest was clear to auscultation. HEART: Regular rate and rhythm. ABDOMEN: Soft. Bowel sounds are positive. No organomegaly. EXTREMITIES: No pedal edema. SKIN no rashes. NEURO: She is alert, oriented to name but not to place. LABS: Labs done from today WBC 7.5, hemoglobin 9.9. Rest of the labs are within normal limits. IMPRESSION: 1. Epigastric pain and atypical chest pain of 2 days duration. EGD done yesterday showed a large circumferential duodenal bulbar ulcer with no active bleeding, status post biopsies which are still pending. Presently on Protonix 40 mg twice daily. 2. Atypical chest pain, resolved. 3. History of coronary artery disease. 4. Gastroesophageal reflux disease. RECOMMENDATIONS: 1. Continue with Protonix 40 mg twice daily. 2. Advance diet as tolerated. 3. Await biopsy results. 4. She can be discharged home with outpatient followup in the office in 3-4 weeks. MMODL / IJN: [id number] /
--- NOTE | 2019-12-13 15:17 | PN ---
PROGRESS NOTE DATE OF SERVICE: 12/13/2019 This 84-year-old woman who was admitted with chest pain also had abdominal pain and significant findings. Dr. Romano has done upper endoscopy yesterday which showed circumferential duodenal bulb ulcer with no active bleeding. A small hiatal hernia with LA grade reflux esophagitis also. Surgery has seen the patient today and recommended continue the current medications. Past medical history reviewed. REVIEW OF SYSTEMS: CARDIOVASCULAR SYSTEM: No angina, palpitations. RESPIRATORY SYSTEM: As mentioned earlier. GI: As mentioned earlier. NERVOUS SYSTEM: No numbness or weakness. CURRENT MEDICATIONS: Reviewed and include: Aspirin, Lipitor, Lanoxin, folic acid, Synthroid, Cozaar, multivitamins, Narcan, Protonix, Zosyn. PHYSICAL EXAMINATION: Patient is alert and oriented times three. Pulse 70, blood pressure 118/60, respirations 16, temperature 98.2, pulse ox 97% on room air. HEENT: Conjunctivae normal. NECK: No JVD. CARDIOVASCULAR: S1, S2 muffled. RESPIRATIONS: Breath sounds diminished in the bases. Scattered rhonchi and crackles. ABDOMEN: Soft, nontender. NERVOUS SYSTEM: No focal deficits. LABS: WBC 4.1, hemoglobin 9.9, sodium 137. ASSESSMENT: 1. Chest pain possible unstable angina versus musculoskeletal pain. 2. Abdominal pain and constipation with moderate severe inflammatory changes in the gastroduodenal junction involving the gastric antrum with the first and second part of the duodenum possibly gastric duodenitis. 3. Circumferential duodenal ulcer in the EGD. 4. Hyponatremia. 5. History of coronary artery disease. 6. History of gastroesophageal reflux disease. 7. Hypothyroidism. 8. Remote history of nicotine dependence. 9. FULL CODE. RECOMMENDATIONS AND DISCUSSION: Recommend to continue the current medications, management and symptomatic treatment. Otherwise, increase the dose of Protonix to b.i.d. Add Carafate to the current regimen. Continue to monitor. Repeat labs. Otherwise, we will stop the IV fluids. Patient is extremely keen on going home at this time. Closely follow with multiple consultants. Further recommendations to follow. MMODL / IJN: [id number] /
[2019-12-13] MEDS: SUCRALFATE 1 GM TAB PO SCH ×2 (16:39→20:13)
[2019-12-14] MEDS: PIPERACILLIN-TAZOBACTAM 3.375 GM in SODIUM CHLORIDE 0.9% 100 ML IVPB SCH ×2 (00:19→08:55)
[2019-12-14] MEDS: PANTOPRAZOLE 40 MG TABLET PO SCH (06:12)
[2019-12-14] MEDS: LEVOTHYROXINE 88 MCG TAB PO SCH (06:13)
[2019-12-14] MEDS: SUCRALFATE 1 GM TAB PO SCH ×2 (06:13→11:57)
[2019-12-14 08:24] VITALS: BP 156/77; PULSE 72; RESP 16; TEMP 98.1
[2019-12-14] MEDS: HEPARIN SODIUM,PORCINE 5,000 UNIT/ML 1 ML VIAL SQ SCH (08:55)
[2019-12-14] MEDS: ASPIRIN 81 MG PO SCH (08:55)
[2019-12-14] MEDS: THIAMINE 100 MG TAB PO SCH (08:56)
[2019-12-14] MEDS: ATORVASTATIN 20 MG TAB PO SCH (08:56)
[2019-12-14] MEDS: LOSARTAN 50 MG TAB PO SCH (08:56)
[2019-12-14] MEDS: DIGOXIN 125 MCG TAB PO SCH (08:56)
[2019-12-14] MEDS: polyethylene glycoL 3350 17 GM POWD.PACK PO SCH (08:56)
[2019-12-14] MEDS: FOLIC ACID 1 MG TAB PO SCH (08:56)
[2019-12-14] MEDS: MULTIVITAMINS, THERA 1 EACH TAB PO SCH (08:56)
--- NOTE | 2019-12-14 09:33 | P.PN ---
Progress Note - Text Progress Note Date: 12/14/19 Patient is resting comfortably. She has had some oral intake. She has had minimal epigastric pain. On exam her vital signs are stable. Abdomen soft. Recent diagnosis of duodenal ulcer. Patient will be discharged home per medicine. She'll follow-up in the office as an outpatient.
[2019-12-14 09:34] LABS: Basophils % (A) 1 %; Eosinophils # (A) 0.2 k/uL (0-0.7); Eosinophils % (A) 7 %; HCT 32.7 % (34.0-46.0); HGB 10.5 gm/dL (11.4-16.0); Lymphocytes # (A) 0.9 k/uL (1.0-4.8); Lymphocytes % (A) 28 %; MCH 29.4 pg (25.0-35.0); MCV 91.8 fL (80.0-100.0); Mean Platelet Volume 6.9; Monocytes # (A) 0.3 k/uL (0-1.0); Monocytes % (A) 8 %; Neutrophils # (A) 1.7 k/uL (1.3-7.7); Neutrophils % (A) 53 %; Platelet Count 175 k/uL (150-450); RBC 3.56 m/uL (3.80-5.40); RDW 14.9 % (11.5-15.5); WBC 3.2 k/uL (3.8-10.6)
[2019-12-14 09:38] LABS: Potassium 3.9 mmol/L (3.5-5.1)
--- NOTE | 2019-12-14 11:16 | PN ---
PROGRESS NOTE DATE OF DICTATION: December 14, 2019 Patient is an 84-year-old pleasant white female admitted to hospital with epigastric pain and chest pain. She had an EGD done 2 days ago that showed a large duodenal bulbar ulcer with no active bleeding. She is presently on Protonix 40 mg twice daily. She is doing well. Abdominal pain has resolved. No nausea, no vomiting. Tolerating diet well. PHYSICAL EXAMINATION: She appears comfortable. No apparent distress. Vital signs stable. Blood pressure is 156/77, pulse rate 72, temperature 98.1. HEENT examination unremarkable. Conjunctivae pink. Sclerae anicteric. Oral cavity no lesions. NECK no JVD or lymph node enlargement. CHEST was clear to auscultation. HEART: Regular rate and rhythm. ABDOMEN: Soft, it was nontender, nondistended. Bowel sounds are positive. EXTREMITIES: No pedal edema. NEUROLOGIC: Alert and oriented x3. No focal deficits. LABS: Labs done from today: WBC 3.2, hemoglobin 10.5, platelets normal. Basic metabolic panel is within normal limits. IMPRESSION: 1. Large duodenal bulbar ulcer with no active bleeding, presently on Protonix 40 mg twice daily, doing well. Has no symptoms. 2. Mild anemia. Hemoglobin stable at 10.5 g/dL. 3. Atypical chest pain, resolved. RECOMMENDATIONS: 1. Continue with Protonix 40 mg twice daily. 2. Avoid NSAIDs. 3. Monitor CBC daily. 4. Advance diet as tolerated. 5. We will follow with you closely. Thank you for this consultation. MMROMANL / SHANIKAN: [id number] /
--- NOTE | 2019-12-15 07:12 | DS ---
DISCHARGE SUMMARY DATE OF SERVICE: 12/14/2019 FINAL DIAGNOSES: 1. Chest pain possible musculoskeletal, myocardial infarction ruled out, present on admission. 2. Abdominal pain and constipation, moderate severe inflammatory changes in the gastroduodenal junction involving the gastric antrum with the first and second part of the duodenum possibly gastroduodenitis with circumferential duodenal ulcer seen on the EGD. 3. Hyponatremia. 4. History of coronary artery disease. 5. History of gastroesophageal reflux disease. 6. Hypothyroidism. 7. Remote history of nicotine dependence. 8. FULL CODE. DISCHARGE DISPOSITION: The patient will be discharged in stable condition with guarded prognosis. Total time taken 35 minutes. HISTORY OF PRESENT ILLNESS: This 84-year-old woman with a past medical history of multiple medical problems admitted with chest pain, some abnormal CT scan findings. The patient refused the stress testing. Cardiology recommended medical treatment. An EGD was done and showed ulcers, recommended conservative line of treatment. Because of abnormal CT scan findings as mentioned earlier, surgical evaluation has been sought also. Otherwise, the patient was seen by Infectious Disease as well. On exam, vitals are stable. CARDIOVASCULAR: S1, S2 muffled. ABDOMEN: Soft. DISCHARGE ADVICE AND MEDICATIONS: 1. Diet is cardiac. 2. Activity limited until followup. 3. Follow up with Dr. Fair in 2 to 3 days. 4. Follow up with Gastroenterology as recommended. 5. Follow up with Surgery as recommended. 6. Follow with Infectious Disease and Cardiology as recommended. Medications are: 1. Cozaar 50 mg daily. 2. No NSAIDs. 3. Digitek 125 mcg p.o. daily. 4. Synthroid 88 mcg p.o. daily. 5. Carafate 1 gram a.c. and at bedtime. 6. Lipitor 20 mg daily. 7. MiraLAX 17 grams daily p.r.n. 8. Multivitamins one p.o. daily. 9. Protonix 40 mg p.o. b.i.d. 10.Antibiotic per Dr. Jose. Once again the patient will be discharged in a stable condition with guarded prognosis. MMODL / IJN: [id number] / MTDD
--- NOTE | 2019-12-16 08:13 | CDI ---
Documentation Clarification Form Date: 12/16/19 From: Lynn Vicente CCS Phone: If you have a question about this query, please contact Emili Ervin, [employer] Operators Supervisor at [phone] between 8am and 5pm. Admit Date: 12/11/19 Discharge Date:12/14/19 Patient Name: Anusha Parikh Visit Number: [id number] ATTENTION: The Clinical Documentation Specialists (CDI) and [facility] Coding Staff appreciate your assistance in clarifying documentation. Please respond to the clarification below the line at the bottom and electronically sign. The CDI & [facility] Coding staff will review the response and follow-up if needed. Please note: Queries are made part of the Legal Health Record. If you have any questions, please contact the author of this message via ITS. Dear Dr. Gill, EGD documents: Circumferential duodenal bulbar ulcer with no active bleeding Patient presents with epigastric and chest pain. History/Risk Factors: CAD, HTN, Hypothyroid, AFIB, Gastritis Clinical Indicators: Epigastric pain Radiology findings: Moderate to severe inflammatory change at gastroduodenal junction involving gastric antrum and first and second portion of duodenum.No free air seen.No well-formed fluid collection or drainable abscess noted. Vital Signs: BP 145/69, RR 16, MI 70, O2 Sat 100 Treatment: Protonix 40 mg PO AC-BID, Carafate 1 gm PO ACHS Consults: Rosalina In your professional opinion, can you please clarify duodenal ulcer as: Acute Chronic Other, please specify Unable to determine Acute MTDD
--- NOTE | 2019-12-16 08:23 | CDI ---
Documentation Clarification Form Date: 12/16/19 From: Lynn Vicente CCS Phone: If you have a question about this query, please contact Emili Ervin, Disability Aide at [phone] between 8am and 5pm. Admit Date: 12/11/19 Discharge Date: 12/14/19 Patient Name: Anusha Parikh Visit Number: [id number] ATTENTION: The Clinical Documentation Specialists (CDI) and [facility] Coding Staff appreciate your assistance in clarifying documentation. Please respond to the clarification below the line at the bottom and electronically sign. The CDI & [facility] Coding staff will review the response and follow-up if needed. Please note: Queries are made part of the Legal Health Record. If you have any questions, please contact the author of this message via ITS. Dear Dr. Gill, Anemia is documented in the PN 12/13. History/Risk Factors: Duodenal ulcer, Esophagitis, Gastritis, HTN, GERD, AFIB Clinical indicators: Anemia Hemoglobin: 3.79, 3.41, 3.40 Hematocrit: 30.9, 31.4. 32.7 EGD: 1.Circumferential duodenal bulbar ulcer with no active bleeding 2.Small hiatal hernia and LA grade a reflux esophagitis Treatment: Folic Acid 1 mg PO Daily, Carafate 1 gm PO ACHS In order to capture the severity of condition, please clarify the type of anemia and etiology if known:. Acute blood loss anemia Acute on chronic blood loss anemia Chronic blood loss anemia Iron deficiency anemia Drug induced anemia Nutritional anemia Anemia of chronic disease Unable to determine Other, please specify Acute on chronic blood loss anemia MTDD
== END 2019-12-14 13:37 | disposition home health service (06) | DRG 384 ==
LOC: EC 14:28 → 3NCARDOBS 17:51 → OBSVTOIN 12-11 10:32
PROVIDERS: ADMIT Internal Medicine; ATTEND Internal Medicine
PROC: 0DB78ZX Excision of Stomach, Pylorus, Via Natural or Artificial Opening Endoscopic, Diagnostic (ICD-10-PCS; principal; 2019-12-12 13:00)
DX: K26.3 Acute duodenal ulcer without hemorrhage or perforation (principal); E87.1 Hypo-osmolality and hyponatremia; D62 Acute posthemorrhagic anemia; I48.0 Paroxysmal atrial fibrillation; E03.9 Hypothyroidism, unspecified; I25.10 Atherosclerotic heart disease of native coronary artery without angina pectoris; K59.00 Constipation, unspecified; K21.00 Gastro-esophageal reflux disease with esophagitis, without bleeding; I10 Essential (primary) hypertension; E78.5 Hyperlipidemia, unspecified; K44.9 Diaphragmatic hernia without obstruction or gangrene; K29.70 Gastritis, unspecified, without bleeding; I05.1 Rheumatic mitral insufficiency; R07.89 Other chest pain; Z79.890 Hormone replacement therapy; Z79.899 Other long term (current) drug therapy; Z86.69 Personal history of other diseases of the nervous system and sense organs; Z87.891 Personal history of nicotine dependence; Z88.0 Allergy status to penicillin; Z88.2 Allergy status to sulfonamides; Z88.8 Allergy status to other drugs, medicaments and biological substances
CPT/HCPCS: 36415; 43239; 71046; 71250; 74177; 80048; 80053; 80061; 80162; 81003; 83605; 83690; 83735; 84484; 85025; 85610; 85652; 85730; 86140; 87040; 88305; 88342; 93005; 93306; 96374; 96375; 99285

== ENCOUNTER 2022-10-07 12:36 | Emergency (ER) | payer MEDICARE, BC ==
[2022-10-07 12:48] VITALS: RESP 18
--- NOTE | 2022-10-07 13:21 | ED ---
Wound/Laceration HPI <Abimael Montero - Last Filed: 10/16/22 14:42> - General Source: patient, family (Sons), EMS, RN notes reviewed Mode of arrival: EMS <Sis Galvez - Last Filed: 10/22/22 03:17> - General Chief Complaint: Wound/Laceration Stated Complaint: Leg infection Time Seen by Provider: 10/07/22 12:56 - History of Present Illness Initial Comments: Patient is an 87-year-old female presenting to the emergency room with her sons via EMS with concerns regarding drainage from a skin tear that has not been healing to her right worrell approximately 1 week ago after she hit it on a piece furniture. The son reports that he has been keeping the wound clean and dry but it is not healing and began having puslike discharge that they became concerned about. Patient is pleasantly confused but at baseline son denies any known fevers or chills. Patient has limited mobility which has not been impaired by her leg wound. Patient has a past medical history significant for CVA, CAD, GERD, hypothyroidism, hyperlipidemia, and hypertension. (Sis Galvez) - Related Data Home Medications Medication Instructions Recorded Confirmed Digoxin [Digitek] 125 mcg PO DAILY 09/14/14 12/10/19 Levothyroxine Sodium [Synthroid] 88 mcg PO DAILY 09/14/14 12/10/19 Losartan [Cozaar] 50 mg PO DAILY 09/14/14 12/10/19 Previous Rx's Medication Instructions Recorded Atorvastatin [Lipitor] 20 mg PO DAILY #30 tab 12/14/19 Multivitamins, Thera [Multivitamin 1 each PO DAILY #30 tab 12/14/19 (formulary)] Pantoprazole [Protonix] 40 mg PO AC-BID #60 tablet.dr 12/14/19 Sucralfate [Carafate] 1 gm PO ACHS #120 tab 12/14/19 polyethylene glycoL 3350 [Miralax] 17 gm PO DAILY #30 powd.pack 12/14/19 clindamycin HCL [Cleocin] 300 mg PO Q6HR 10 Days #40 cap 10/07/22 Cephalexin [Keflex] 500 mg PO Q6HR #28 cap 10/16/22 Cephalexin [Keflex] 500 mg PO Q6HR #28 cap 10/16/22 Allergies Allergy/AdvReac Type Severity Reaction Status Date / Time dexamethasone [From TobraDex] Allergy Unknown Verified 12/10/19 18:26 olmesartan medoxomil Allergy Dyspnea Verified 12/10/19 18:26 [From Benicar] Penicillins Allergy Rash/Hives Verified 12/10/19 18:26 sulfamethoxazole Allergy Rash/Hives Verified 12/10/19 18:26 [From Bactrim] tobramycin [From TobraDex] Allergy Unknown Verified 12/10/19 18:26 tramadol HCl [From Ultram] Allergy Unknown Verified 12/10/19 18:26 trimethoprim [From Bactrim] Allergy Rash/Hives Verified 12/10/19 18:26 xibornol Allergy Unknown Verified 12/10/19 18:26 Review of Systems ROS Other: All systems not noted in ROS Statement are negative. <Abimael Montero - Last Filed: 10/16/22 14:42> ROS Other: All systems not noted in ROS Statement are negative. <Sis Galvez - Last Filed: 10/22/22 03:17> ROS Statement: Those systems with pertinent positive or pertinent negative responses have been documented in the HPI. Past Medical History Past Medical History: Coronary Artery Disease (CAD), CVA/TIA, Eye Disorder, GERD/Reflux, Thyroid Disorder History of Any Multi-Drug Resistant Organisms: None Reported Past Surgical History: No Surgical Hx Reported Past Anesthesia/Blood Transfusion Reactions: No Reported Reaction Past Psychological History: No Psychological Hx Reported Smoking Status: Never smoker Past Alcohol Use History: None Reported Past Drug Use History: None Reported - Past Family History Father Family Medical History: No Reported History <Sis Galvez - Last Filed: 10/22/22 03:17> General Exam Limitations: altered mental status General appearance: alert, in no apparent distress Head exam: Present: atraumatic, normocephalic, normal inspection Eye exam: Present: normal appearance, PERRL. Absent: scleral icterus, conjunctival injection, periorbital swelling ENT exam: Present: normal exam, mucous membranes moist Neck exam: Present: normal inspection, full ROM Respiratory exam: Present: normal lung sounds bilaterally. Absent: respiratory distress, wheezes, rales, rhonchi, stridor Cardiovascular Exam: Present: regular rate, normal rhythm, normal heart sounds. Absent: systolic murmur, diastolic murmur, rubs, gallop, clicks GI/Abdominal exam: Present: soft, normal bowel sounds. Absent: distended, tenderness, guarding, rebound, rigid Extremities exam: Present: pedal edema (Bilateral lower extremity edema +1-2) Right Ankle exam: Present: tenderness, swelling Gait: not tested/not observed Back exam: Present: normal inspection Neurological exam: Present: alert, CN II-XII intact Expanded Neurological exam: Present: other (Very forgetful) Patient oriented to: Present: person. Absent: place, time An Total: 14 Psychiatric exam: Present: other (Anxious and agitated at times) Skin exam: Present: other (Skin tear with sloughing tissue and surrounding cellulitis open wound with slough tissue approximately 2.5 x 4 cm culture obtained. No foul odor.) <Sis Galvez - Last Filed: 10/22/22 03:17> Course <Abimael Montero - Last Filed: 10/16/22 14:42> Vital Signs 10/07/22 10/07/22 12:41 15:32 Temperature 98.5 F 97.3 F L Pulse Rate 77 69 Respiratory 18 18 Rate Blood Pressure 135/83 139/76 O2 Sat by Pulse 94 L 98 Oximetry - Reevaluation(s) Reevaluation #1: 10/16/22 14:42 I was asked to prescribe alternate antibiotic based on sensitivites (Abimael Montero) Medical Decision Making - Lab Data Result diagrams: 10/07/22 14:02 10/07/22 14:02 <Abimael Montero - Last Filed: 10/16/22 14:42> - Lab Data Result diagrams: 10/07/22 14:02 10/07/22 14:02 - Radiology Data Radiology results: report reviewed, image reviewed <Sis Galvez - Last Filed: 10/22/22 03:17> - Medical Decision Making Was pt. sent in by a medical professional or institution (, PA, STATEMENT SERVICES REPRESENTATIVE, urgent care, hospital, or skilled nursing...) When possible be specific @ -[No] Did you speak to anyone other than the patient for history (EMS, parent, family, police, friend...)? What history was obtained from this source @ -Past, spoke with sons at bedside regarding details of presenting illness along with past medical history. Did you review nursing and triage notes (agree or disagree)? Why? @ -[I reviewed and agree with nursing and triage notes] Were old charts reviewed (outside hosp., previous admission, EMS record, old EKG, old radiological studies, urgent care reports/EKG's, skilled nursing records)? Report findings @ -[No old charts were reviewed] Differential Diagnosis (chest pain, altered mental status, abdominal pain women, abdominal pain men, vaginal bleeding, weakness, fever, dyspnea, syncope, headache, dizziness, GI bleed, back pain, seizure, CVA, palpatations, mental health, musculoskeletal)? @ -[not applicable] EKG interpreted by me (3pts min.). @ -[None done] X-rays interpreted by me (1pt min.). @ -X-ray right tibia-fibula: Soft tissue swelling, no fracture or osseous erosion indicating osteomyelitis. CT interpreted by me (1pt min.). @ -[None done] U/S interpreted by me (1pt. min.). @ -[None done] What testing was considered but not performed or refused? (CT, X-rays, U/S, labs)? Why? @ -[None] What meds were considered but not given or refused? Why? @ -[None] Did you discuss the management of the patient with other professionals (professionals i.e. , PA, STATEMENT SERVICES REPRESENTATIVE, lab, RT, psych nurse, nursing home social worker, transportation analyst, teacher, medical information officer, case finishing machine adjuster)? Give summary @ -[No] Was smoking cessation discussed for >3mins.? @ -[No] Was critical care preformed (if so, how long)? @ -[No] Were there social determinants of health that impacted care today? How? ([place] elessness, low income, unemployed, alcoholism, drug addiction, transportation, low edu. Level, literacy, decrease access to med. care, senior care, rehab)? @ -[No] Was there de-escalation of care discussed even if they declined (Discuss DNR or withdrawal of care, Hospice)? DNR status @ -[No] What co-morbidities impacted this encounter? (DM, HTN, Smoking, COPD, CAD, Cancer, CVA, ARF, Chemo, Hep., AIDS, mental health diagnosis, sleep apnea, morbid obesity)? @ -[None] Was patient admitted / discharged? Hospital course, mention meds given and route, prescriptions, significant lab abnormalities, going to OR and other pertinent info. @ -87-year-old female presenting to the emergency room with her sons via EMS with concerns regarding drainage from a skin tear that has not been healing to her right worrell approximately 1 week ago after she hit it on a PC furniture. The son reports that he has been keeping the wound clean and dry but it is not healing and began having puslike discharge that they became concerned about. Will obtain laboratory studies of CBC, CMP, wound culture, lactic acid and blood cultures along with X-ray to evaluate for osteomyelitis. CBC without leukocytosis. Thrombocytopenia and noted likely secondary to chronic hepatic failure as chronically elevated AST and ALTs along with elevated bilirubin noted on CMP. Slightly intravascularly dry with a BUN of 25 and a creatinine of 1.26 however due to third spacing will defer IV hydration. X-ray negative for osseous erosion soft tissue swelling noted. Wound culture obtained due to multiple drug ALLERGIES will place on clindamycin and advised family that if cultures indicate alternative medication as needed be hospital will contact them for changing of antibiotic therapy. Questions and concerns answered. Dressing applied to right lower leg wound. Return parameters to the emergency room discussed. Will discharge home in stable condition on oral antibiotic therapy to treat skin tear wound with surrounding cellulitis. Undiagnosed new problem with uncertain prognosis? @ -[No] Drug Therapy requiring intensive monitoring for toxicity (Heparin, Nitro, Insulin, Cardizem)? @ -[No] Were any procedures done? @ -[No] Diagnosis/symptom? @ -Skin tear wound with cellulitis Acute, or Chronic, or Acute on Chronic? @ -Acute Uncomplicated (without systemic symptoms) or Complicated (systemic symptoms)? @ -Uncomplicated Side effects of treatment? @ -[No] Exacerbation, Progression, or Severe Exacerbation? @ -[No] Poses a threat to life or bodily function? How? (Chest pain, USA, OR, pneumonia, PE, COPD, DKA, ARF, appy, cholecystitis, CVA, Diverticulitis, Homicidal, Suicidal, threat to staff... and all critical care pts) @ -[No] Case discussed with Dr. Avila. (Sis Galvez) - Lab Data Lab Results 10/07/22 10/07/22 10/07/22 Range/Units 14:02 14:02 14:02 WBC 3.8 (3.8-10.6) k/uL RBC 3.65 L (3.80-5.40) m/uL Hgb 11.7 (11.4-16.0) gm/dL Hct 33.7 L (34.0-46.0) % MCV 92.1 (80.0-100.0) fL MCH 32.1 (25.0-35.0) pg MCHC 34.8 (31.0-37.0) g/dL RDW 14.4 (11.5-15.5) % Plt Count 64 L (150-450) k/uL MPV 9.3 Neutrophils % 64 % Lymphocytes % 20 % Monocytes % 10 % Eosinophils % 2 % Basophils % 1 % Neutrophils # 2.4 (1.3-7.7) k/uL Lymphocytes # 0.7 L (1.0-4.8) k/uL Monocytes # 0.4 (0-1.0) k/uL Eosinophils # 0.1 (0-0.7) k/uL Basophils # 0.0 (0-0.2) k/uL Manual Slide Review Performed RBC Morphology Normal Sodium 130 L (137-145) mmol/L Potassium 4.9 (3.5-5.1) mmol/L Chloride 99 (98-107) mmol/L Carbon Dioxide 24 (22-30) mmol/L Anion Gap 7 mmol/L BUN 25 H (7-17) mg/dL Creatinine 1.26 H (0.52-1.04) mg/dL Est GFR (CKD-EPI)AfAm 44 (>60 ml/min/1.73 sqM) Est GFR (CKD-EPI)NonAf 38 (>60 ml/min/1.73 sqM) Glucose 94 (74-99) mg/dL Plasma Lactic Acid Marco 1.4 (0.7-2.0) mmol/L Calcium 8.0 L (8.4-10.2) mg/dL Total Bilirubin 2.0 H (0.2-1.3) mg/dL AST 106 H (14-36) U/L ALT 60 H (4-34) U/L Alkaline Phosphatase 150 H (38-126) U/L Total Protein 8.3 H (6.3-8.2) g/dL Albumin 3.2 L (3.5-5.0) g/dL Disposition <Abimael Montero - Last Filed: 10/16/22 14:42> Is patient prescribed a controlled substance at d/c from ED?: No Time of Disposition: 15:48 <Leonor,Laura - Last Filed: 10/22/22 03:17> Clinical Impression: Skin tear, Cellulitis Disposition: HOME SELF-CARE Condition: Stable Instructions (If sedation given, give patient instructions): Cellulitis (ED), Skin Tear (ED) Additional Instructions: Keep wound clean and dry. Apply dressing daily while draining with Vaseline gauze and 4 x 4 and wrapped. Please take antibiotic as prescribed. Please follow-up with your primary care provider. Please return to the Emergency Department if symptoms worsen or any other concerns. Prescriptions: clindamycin HCL [Cleocin] 300 mg PO Q6HR 10 Days #40 cap Cephalexin [Keflex] 500 mg PO Q6HR #28 cap Cephalexin [Keflex] 500 mg PO Q6HR #28 cap Referrals: Mikki Fair MD [Primary Care Provider] - 1-2 days
[2022-10-07 14:29] LABS: ALT 60 U/L (4-34); AST 106 U/L (14-36); African American GFR (CKD) 44 (>60 ml/min/1.73 sqM); Albumin 3.2 g/dL (3.5-5.0); Alkaline Phosphatase 150 U/L (38-126); Anion Gap 7 mmol/L; Blood Urea Nitrogen 25 mg/dL (7-17); Carbon Dioxide 24 mmol/L (22-30); Chloride 99 mmol/L (98-107); Glucose 94 mg/dL (74-99); Non-African American GFR(CKD) 38 (>60 ml/min/1.73 sqM); Sodium 130 mmol/L (137-145); Total Protein 8.3 g/dL (6.3-8.2)
[2022-10-07 14:34] LABS: Potassium 4.9 mmol/L (3.5-5.1)
[2022-10-07 14:40] LABS: Basophils % (A) 1 %; Eosinophils # (A) 0.1 k/uL (0-0.7); Eosinophils % (A) 2 %; HCT 33.7 % (34.0-46.0); HGB 11.7 gm/dL (11.4-16.0); Lymphocytes # (A) 0.7 k/uL (1.0-4.8); Lymphocytes % (A) 20 %; MCH 32.1 pg (25.0-35.0); MCHC 34.8 g/dL (31.0-37.0); MCV 92.1 fL (80.0-100.0); Mean Platelet Volume 9.3; Monocytes # (A) 0.4 k/uL (0-1.0); Monocytes % (A) 10 %; Neutrophils # (A) 2.4 k/uL (1.3-7.7); Neutrophils % (A) 64 %; RBC 3.65 m/uL (3.80-5.40); RDW 14.4 % (11.5-15.5); WBC 3.8 k/uL (3.8-10.6)
--- NOTE | 2022-10-07 14:56 | XR ---
EXAMINATION TYPE: XR tibia fibula RT DATE OF EXAM: 10/07/2022 2:47 PM INDICATION: Patient age:Female; 87 years old; Reason for study: wound; PHH. COMPARISON: None TECHNIQUE: The right tibia/fibula was examined in AP and lateral projections. FINDINGS: No evidence of any acute osseous pathology of dislocation. No osseous erosions. No subcutis gas. Vascular sclerosis. Soft tissue defect along the anterior soft tissues of the mid tibia. Diffus e subcutaneous edema. IMPRESSION: 1. No evidence of acute fracture. No osseous erosions. 2. Diffuse service edema with soft tissue defect along the anterior mid tibial soft tissues likely r epresenting reported wound.
[2022-10-07 15:32] LABS: RBC Morphology Normal
[2022-10-07 15:33] LABS: Platelet Count 64 k/uL (150-450)
[2022-10-07 15:34] VITALS: BP 139/76; PULSE 69; TEMP 97.3
== END 2022-10-07 17:30 | disposition home or self-care (01) ==
LOC: EC 12:36
DX: S81.811A Laceration without foreign body, right lower leg, initial encounter (principal); L03.115 Cellulitis of right lower limb; B96.1 Klebsiella pneumoniae [K. pneumoniae] as the cause of diseases classified elsewhere; B96.89 Other specified bacterial agents as the cause of diseases classified elsewhere; I10 Essential (primary) hypertension; I25.10 Atherosclerotic heart disease of native coronary artery without angina pectoris; E03.9 Hypothyroidism, unspecified; Z79.890 Hormone replacement therapy; Z79.899 Other long term (current) drug therapy; Z88.0 Allergy status to penicillin; Z88.1 Allergy status to other antibiotic agents; Z88.2 Allergy status to sulfonamides; Z88.8 Allergy status to other drugs, medicaments and biological substances; Z86.73 Personal history of transient ischemic attack (TIA), and cerebral infarction without residual deficits; W22.03XA Walked into furniture, initial encounter
CPT/HCPCS: 36415; 80053; 83605; 85025; 87040; 87070; 87077; 87186; 87205; 99284

== ENCOUNTER 2023-05-25 14:27 | Emergency (ER) | payer MEDICARE, BC ==
--- NOTE | 2023-05-25 15:10 | ED ---
General Adult HPI <WinstonAbimael - Last Filed: 05/25/23 17:34> - General Source: patient, family, EMS, RN notes reviewed Mode of arrival: EMS Limitations: no limitations <Edgardo Falk - Last Filed: 05/26/23 06:44> - General Chief complaint: Extremity Problem,Nontraumatic Stated complaint: leg swelling Time Seen by Provider: 05/25/23 14:38 - History of Present Illness Initial comments: 87-year-old female presents emergency department chief complaint of right leg swelling. Patient has had prior injury to the right leg causing chronic swelling but is worse than usual. Family states that they contacted her PCP advised to come Emergency Department. She has no chest pain or shortness of breath currently she did receive an oral potassium supplement which he recently increased and made her sick yesterday. Family is concerned about possible blood clot or infection. (Edgardo Falk) - Related Data Home Medications Medication Instructions Recorded Confirmed Digoxin [Digitek] 125 mcg PO DAILY 09/14/14 05/25/23 Levothyroxine Sodium [Synthroid] 88 mcg PO DAILY 09/14/14 05/25/23 Losartan [Cozaar] 50 mg PO DAILY 09/14/14 05/25/23 Furosemide [Lasix] 20 mg PO DAILY 05/25/23 05/25/23 Pantoprazole [Protonix] 40 mg PO DAILY 05/25/23 05/25/23 Previous Rx's Medication Instructions Recorded Atorvastatin [Lipitor] 20 mg PO DAILY #30 tab 12/14/19 Allergies Allergy/AdvReac Type Severity Reaction Status Date / Time dexamethasone [From TobraDex] Allergy Unknown Verified 05/25/23 17:40 olmesartan medoxomil Allergy Dyspnea Verified 05/25/23 17:40 [From Benicar] Penicillins Allergy Rash/Hives Verified 05/25/23 17:40 sulfamethoxazole Allergy Rash/Hives Verified 05/25/23 17:40 [From Bactrim] tobramycin [From TobraDex] Allergy Unknown Verified 05/25/23 17:40 tramadol HCl [From Ultram] Allergy Unknown Verified 05/25/23 17:40 trimethoprim [From Bactrim] Allergy Rash/Hives Verified 05/25/23 17:40 xibornol Allergy Unknown Verified 05/25/23 17:40 Review of Systems ROS Other: All systems not noted in ROS Statement are negative. <Abimael Montero - Last Filed: 05/25/23 17:34> ROS Other: All systems not noted in ROS Statement are negative. <Edgardo Falk - Last Filed: 05/26/23 06:44> ROS Statement: Those systems with pertinent positive or pertinent negative responses have been documented in the HPI. Past Medical History Past Medical History: Coronary Artery Disease (CAD), CVA/TIA, Eye Disorder, GERD/Reflux, Thyroid Disorder History of Any Multi-Drug Resistant Organisms: None Reported Past Surgical History: No Surgical Hx Reported Past Anesthesia/Blood Transfusion Reactions: No Reported Reaction Past Psychological History: No Psychological Hx Reported Smoking Status: Never smoker Past Alcohol Use History: None Reported Past Drug Use History: None Reported - Past Family History Father Family Medical History: No Reported History <Edgardo Falk - Last Filed: 05/26/23 06:44> General Exam Limitations: no limitations General appearance: alert, in no apparent distress Head exam: Present: atraumatic, normocephalic, normal inspection Respiratory exam: Present: normal lung sounds bilaterally. Absent: respiratory distress, wheezes, rales, rhonchi, stridor Cardiovascular Exam: Present: regular rate, normal rhythm, normal heart sounds. Absent: systolic murmur, diastolic murmur, rubs, gallop, clicks Extremities exam: Present: other (Right leg swelling mild tenderness mild erythema neurovascular intact there is a hematoma noted) Neurological exam: Present: alert Skin exam: Present: warm, dry, intact, normal color. Absent: rash <Edgardo Falk - Last Filed: 05/26/23 06:44> Course Vital Signs 05/25/23 05/25/23 14:36 18:20 Temperature 97.9 F 97.6 F Pulse Rate 70 69 Respiratory 18 16 Rate Blood Pressure 123/65 123/74 O2 Sat by Pulse 99 96 Oximetry Medical Decision Making - Lab Data Result diagrams: 05/25/23 15:54 05/25/23 15:54 <Abimael Montero - Last Filed: 05/25/23 17:34> - Lab Data Result diagrams: 05/25/23 15:54 05/25/23 15:54 <Edgardo Falk - Last Filed: 05/26/23 06:44> - Medical Decision Making Was pt. sent in by a medical professional or institution ([facility], LUBE WORKER, urgent care, hospital, or alf...) When possible be specific @ -PCP Did you speak to anyone other than the patient for history (EMS, parent, family, police, friend...)? What history was obtained from this source @ -Family providing past medical history Did you review nursing and triage notes (agree or disagree)? Why? @ -I reviewed and agree with nursing and triage notes Were old charts reviewed (outside hosp., previous admission, EMS record, old EKG, old radiological studies, urgent care reports/EKG's, alf records)? Report findings @ -No old charts were reviewed Differential Diagnosis (chest pain, altered mental status, abdominal pain women, abdominal pain men, vaginal bleeding, weakness, fever, dyspnea, syncope, headache, dizziness, GI bleed, back pain, seizure, CVA, palpatations, mental health, musculoskeletal)? @ -DVT, leg edema, cellulitis, hematoma EKG interpreted by me (3pts min.). @ -None on X-rays interpreted by me (1pt min.). @ -None done CT interpreted by me (1pt min.). @ -None done U/S interpreted by me (1pt. min.). @ -[Ultrasound right lower extremity no acute DVT What testing was considered but not performed or refused? (CT, X-rays, U/S, labs)? Why? @ -None What meds were considered but not given or refused? Why? @ -None Did you discuss the management of the patient with other professionals (professionals i.e. [facility], LUBE WORKER, lab, RT, psych nurse, geriatric social worker, woodwork salvage inspector, teacher, family preservation officer, case management manager)? Give summary @ -No Was smoking cessation discussed for >3mins.? @ -No Was critical care preformed (if so, how long)? @ -No Were there social determinants of health that impacted care today? How? (Homelessness, low income, unemployed, alcoholism, drug addiction, transportation, low edu. Level, literacy, decrease access to med. care, longterm, rehab)? @ -No Was there de-escalation of care discussed even if they declined (Discuss DNR or withdrawal of care, Hospice)? DNR status @ -No What co-morbidities impacted this encounter? (DM, HTN, Smoking, COPD, CAD, Canc er, CVA, ARF, Chemo, Hep., AIDS, mental health diagnosis, sleep apnea, morbid obesity)? @ -None Was patient admitted / discharged? Hospital course, mention meds given and route, prescriptions, significant lab abnormalities, going to OR and other pertinent info. @ -Discharged patient had ultrasound which was negative for acute malady patient had pending blood work and case signed out to Dr. Montero. Patient laboratory studies reveal no significant acute changes from patient's baseline. Patient w ill follow-up with PCP return parameters sonia. Undiagnosed new problem with uncertain prognosis? @ -No Drug Therapy requiring intensive monitoring for toxicity (Heparin, Nitro, Insulin, Cardizem)? @ -No Were any procedures done? @ -No Diagnosis/symptom? @ -[Leg edema Acute, or Chronic, or Acute on Chronic? @ -Acute Uncomplicated (without systemic symptoms) or Complicated (systemic symptoms)? @ -Uncomplicated Side effects of treatment? @ -[No Exacerbation, Progression, or Severe Exacerbation? @ -No Poses a threat to life or bodily function? How? (Chest pain, USA, VT, pneumonia, PE, COPD, DKA, ARF, appy, cholecystitis, CVA, Diverticulitis, Homicidal, Suicidal, threat to staff... and all critical care pts) @ -No (Edgardo Falk) - Lab Data Lab Results 05/25/23 05/25/23 Range/Units 15:54 15:54 WBC 3.1 L (3.8-10.6) k/uL RBC 2.85 L (3.80-5.40) m/uL Hgb 9.1 L (11.4-16.0) gm/dL Hct 27.6 L (34.0-46.0) % MCV 97.0 (80.0-100.0) fL MCH 32.0 (25.0-35.0) pg MCHC 32.9 (31.0-37.0) g/dL RDW 14.5 (11.5-15.5) % Plt Count 59 L (150-450) k/uL MPV 8.9 Neutrophils % 60 % Lymphocytes % 20 % Monocytes % 8 % Eosinophils % 7 % Basophils % 2 % Neutrophils # 1.9 (1.3-7.7) k/uL Lymphocytes # 0.6 L (1.0-4.8) k/uL Monocytes # 0.2 (0-1.0) k/uL Eosinophils # 0.2 (0-0.7) k/uL Basophils # 0.1 (0-0.2) k/uL Manual Slide Review Performed Rouleaux Present Sodium 135 L (137-145) mmol/L Potassium 4.8 (3.5-5.1) mmol/L Chloride 111 H (98-107) mmol/L Carbon Dioxide 17 L (22-30) mmol/L Anion Gap 7 mmol/L BUN 33 H (7-17) mg/dL Creatinine 1.40 H (0.52-1.04) mg/dL Est GFR (CKD-EPI)AfAm 39 (>60 ml/min/1.73 sqM) Est GFR (CKD-EPI)NonAf 34 (>60 ml/min/1.73 sqM) Glucose 89 (74-99) mg/dL Calcium 7.7 L (8.4-10.2) mg/dL Magnesium 2.0 (1.6-2.3) mg/dL Total Bilirubin 1.8 H (0.2-1.3) mg/dL AST 47 H (14-36) U/L ALT 32 (4-34) U/L Alkaline Phosphatase 115 (38-126) U/L NT-Pro-B Natriuret Pep 258 pg/mL Total Protein 7.3 (6.3-8.2) g/dL Albumin 2.5 L (3.5-5.0) g/dL Disposition Is patient prescribed a controlled substance at d/c from ED?: No <Abimael Montero - Last Filed: 05/25/23 17:34> <Edgardo Falk - Last Filed: 05/26/23 06:44> Clinical Impression: Leg edema, right Disposition: HOME SELF-CARE Condition: Good Instructions (If sedation given, give patient instructions): Leg Edema (ED) Referrals: Mikki Fair MD [REFERRING] - 1-2 days
--- NOTE | 2023-05-25 15:45 | US ---
EXAMINATION TYPE: US venous doppler duplex LE RT DATE OF EXAM: 05/25/2023 2:50 PM COMPARISON: NONE CLINICAL INDICATION: Female, 87 years old with history of swelling; Right leg swelling SIDE PERFORMED: Right TECHNIQUE: The lower extremity deep venous system is examined utilizing real time linear array sonog lowell with graded compression, doppler sonography and color-flow sonography. VESSELS IMAGED: Common Femoral Vein Deep Femoral Vein Greater Saphenous Vein * Femoral Vein Popliteal Vein Small Saphenous Vein * Proximal Calf Veins (* superficial vessels) Right Leg: Negative for DVT IMPRESSION: No evidence of deep venous thrombosis.
[2023-05-25 16:14] LABS: Potassium 4.8 mmol/L (3.5-5.1)
[2023-05-25 16:41] LABS: ALT 32 U/L (4-34); AST 47 U/L (14-36); African American GFR (CKD) 39 (>60 ml/min/1.73 sqM); Albumin 2.5 g/dL (3.5-5.0); Alkaline Phosphatase 115 U/L (38-126); Anion Gap 7 mmol/L; Blood Urea Nitrogen 33 mg/dL (7-17); Calcium 7.7 mg/dL (8.4-10.2); Carbon Dioxide 17 mmol/L (22-30); Chloride 111 mmol/L (98-107); Glucose 89 mg/dL (74-99); NT-Pro-B-Type Natriuretic Pept 258 pg/mL; Non-African American GFR(CKD) 34 (>60 ml/min/1.73 sqM); Sodium 135 mmol/L (137-145); Total Bilirubin 1.8 mg/dL (0.2-1.3); Total Protein 7.3 g/dL (6.3-8.2)
[2023-05-25 16:47] LABS: Basophils # (A) 0.1 k/uL (0-0.2); Basophils % (A) 2 %; Eosinophils # (A) 0.2 k/uL (0-0.7); Eosinophils % (A) 7 %; HCT 27.6 % (34.0-46.0); HGB 9.1 gm/dL (11.4-16.0); Lymphocytes # (A) 0.6 k/uL (1.0-4.8); Lymphocytes % (A) 20 %; MCHC 32.9 g/dL (31.0-37.0); Mean Platelet Volume 8.9; Monocytes # (A) 0.2 k/uL (0-1.0); Monocytes % (A) 8 %; Neutrophils # (A) 1.9 k/uL (1.3-7.7); Neutrophils % (A) 60 %; RBC 2.85 m/uL (3.80-5.40); RDW 14.5 % (11.5-15.5); WBC 3.1 k/uL (3.8-10.6)
[2023-05-25 17:27] LABS: Platelet Count 59 k/uL (150-450)
[2023-05-25 17:29] LABS: Rouleaux Present
[2023-05-25] MEDS: ACETAMINOPHEN TAB 325 MG TAB PO STA (18:20)
[2023-05-25 18:50] VITALS: BP 123/74; PULSE 69; RESP 16; TEMP 97.6
== END 2023-05-25 18:28 | disposition home or self-care (01) ==
LOC: EC 14:27
DX: S80.11XA Contusion of right lower leg, initial encounter (principal); X58.XXXA Exposure to other specified factors, initial encounter
CPT/HCPCS: 36415; 80053; 83735; 83880; 85025; 99284

== ENCOUNTER 2023-06-03 17:22 | Emergency (ER) | payer MEDICARE, BC ==
[2023-06-03 17:35] VITALS: TEMP 98.2
--- NOTE | 2023-06-03 18:02 | ED ---
General Adult HPI - General Chief complaint: Extremity Problem,Nontraumatic Stated complaint: Weakness Time Seen by Provider: 06/03/23 18:02 Source: patient, EMS Mode of arrival: EMS Limitations: no limitations - History of Present Illness Initial comments: Anusha is an 87-year-old female brought to the ER today by her 2 sons for evaluation of swelling and blistering of her right lower extremity. Patient has had chronic lower extremity swelling, she apparently had an injury in the fall of last year and son is concerned she may have some tearing to the muscles in that leg. Patient was seen here couple weeks ago for leg swelling and DVT was ruled out she follow-up with her primary care when she has home health and had an outpatient Doppler performed to review results of that test. Patient is agitated stating she does not know why she is here she repeatedly threatened to call her student liaison officer or the police because were holding her against her will. She offers no meaningful past medical history or complaints. - Related Data Home Medications Medication Instructions Recorded Confirmed Digoxin [Digitek] 125 mcg PO DAILY 09/14/14 05/25/23 Levothyroxine Sodium [Synthroid] 88 mcg PO DAILY 09/14/14 05/25/23 Losartan [Cozaar] 50 mg PO DAILY 09/14/14 05/25/23 Furosemide [Lasix] 20 mg PO DAILY 05/25/23 05/25/23 Pantoprazole [Protonix] 40 mg PO DAILY 05/25/23 05/25/23 Previous Rx's Medication Instructions Recorded Atorvastatin [Lipitor] 20 mg PO DAILY #30 tab 12/14/19 Clobetasol Propionate/Emoll 1 applic TOPICAL BID #100 gm 06/03/23 [Clobetasol Emulsion 0.05% Foam] Allergies Allergy/AdvReac Type Severity Reaction Status Date / Time dexamethasone [From TobraDex] Allergy Unknown Verified 05/25/23 17:40 olmesartan medoxomil Allergy Dyspnea Verified 05/25/23 17:40 [From Benicar] Penicillins Allergy Rash/Hives Verified 05/25/23 17:40 sulfamethoxazole Allergy Rash/Hives Verified 05/25/23 17:40 [From Bactrim] tobramycin [From TobraDex] Allergy Unknown Verified 05/25/23 17:40 tramadol HCl [From Ultram] Allergy Unknown Verified 05/25/23 17:40 trimethoprim [From Bactrim] Allergy Rash/Hives Verified 05/25/23 17:40 xibornol Allergy Unknown Verified 05/25/23 17:40 Review of Systems ROS Statement: Those systems with pertinent positive or pertinent negative responses have been documented in the HPI. ROS Other: All systems not noted in ROS Statement are negative. Past Medical History Past Medical History: Atrial Fibrillation, Coronary Artery Disease (CAD), CVA/TIA, Eye Disorder, GERD/Reflux, Thyroid Disorder History of Any Multi-Drug Resistant Organisms: None Reported Past Surgical History: Tonsillectomy Past Anesthesia/Blood Transfusion Reactions: No Reported Reaction Past Psychological History: No Psychological Hx Reported Smoking Status: Never smoker Past Alcohol Use History: None Reported Past Drug Use History: None Reported - Past Family History Father Family Medical History: No Reported History General Exam - General Exam Comments Initial Comments: Physical Exam GENERAL: Agitated elderly female nontoxic HENT: Normocephalic, Atraumatic. EYES: PERRL, EOMI PULMONARY: Unlabored respirations. CARDIOVASCULAR: RRR Warm and well perfused extremities ABDOMEN: Non-distended SKIN: Multiple large blisters that appear to be filled with blood similar to a bullous pemphigoid only over the right lower extremity. : Deferred NEUROLOGIC: Agitated, moving all extremities MUSCULOSKELETAL: 3+ pitting edema bilateral lower extremities PSYCHIATRIC: No SI/HI Limitations: no limitations Course Vital Signs 06/03/23 06/03/23 17:24 20:00 Temperature 98.2 F Pulse Rate 67 74 Respiratory 18 20 Rate Blood Pressure 141/74 136/77 O2 Sat by Pulse 98 98 Oximetry Medical Decision Making - Medical Decision Making Was pt. sent in by a medical professional or institution (, PA, STUDENT TRUCK DRIVER, urgent care, hospital, or detention...) When possible be specific @ -No Did you speak to anyone other than the patient for history (EMS, parent, family, police, friend...)? What history was obtained from this source @ -Sons at bedside Did you review nursing and triage notes (agree or disagree)? Why? @ -I reviewed and agree with nursing and triage notes Were old charts reviewed (outside hosp., previous admission, EMS record, old EKG, old radiological studies, urgent care reports/EKG's, detention records)? Report findings @ -Previous ER visit and venous Doppler reviewed venous Doppler was negative Differential Diagnosis (chest pain, altered mental status, abdominal pain women, abdominal pain men, vaginal bleeding, weakness, fever, dyspnea, syncope, headache, dizziness, GI bleed, back pain, seizure, CVA, palpatations, mental health)? @ -MDM differential includes trauma, DVT, cellulitis, bullous pemphigus EKG interpreted by me (3pts min.). @ -As above X-rays interpreted by me (1pt min.). @ -None done CT interpreted by me (1pt min.). @ -None done U/S interpreted by me (1pt. min.). @ -None done What testing was considered but not performed or refused? (CT, X-rays, U/S, labs)? Why? @ -Biopsy was recommended but family declined transfer What meds were considered but not given or refused? Why? @ -None Did you discuss the management of the patient with other professionals (professionals i.e. , PA, STUDENT TRUCK DRIVER, lab, RT, psych nurse, social services specialist, student liaison officer, teacher, tactical debriefer officer, egg caser)? Give summary @ -No Was smoking cessation discussed for >3mins.? @ -No Was critical care preformed (if so, how long)? @ -No Were there social determinants of health that impacted care today? How? (Homelessness, low income, unemployed, alcoholism, drug addiction, transportation, low edu. Level, literacy, decrease access to med. care, [facility], rehab)? @ -Decreased access to medical care due to transportation issues Was there de-escalation of care discussed even if they declined (Discuss DNR or withdrawal of care, Hospice)? DNR status @ -Yes, patient is not interested in any medical care family was advised that they can continue with comfort care if that is her wishes What co-morbidities impacted this encounter? (DM, HTN, Smoking, COPD, CAD, Cancer, CVA, ARF, Chemo, Hep., AIDS, mental health diagnosis, sleep apnea, morbid obesity)? @ -Dementia Was patient admitted / discharged? Hospital course, mention meds given and route, prescriptions, significant lab abnormalities, going to OR and other pertinent info. @ -Discharged The patient was seen and evaluated history was obtained from the sons and review of medical record. Patient with worsening bilateral lower extremity edema and now bullous lesions on the right lower extremity, these are concerning for possible bullous pemphigus. Patient's lab had multiple significant abnormalities I did recommend transfer to a tertiary care center for further man agement and likely evaluation by oncology and dermatology however throughout the entire stay in the ER patient was screaming yelling stating that we are holding her against her will threatening to call police and requesting to be taken home. Sons do not feel would be beneficial to force the patient to transfer and admission at outside hospital. He would like to be discharged home with a plan for outpatient follow-up with dermatology here in town. Undiagnosed new problem with uncertain prognosis? @ -S Drug Therapy requiring intensive monitoring for toxicity (Heparin, Nitro, Insulin, Cardizem)? @ -No Were any procedures done? @ -No Diagnosis/symptom? @ -Bullous skin rash Acute, or Chronic, or Acute on Chronic? @ -Acute Uncomplicated (without systemic symptoms) or Complicated (systemic symptoms)? @ -Complicated Side effects of treatment? @ -No Exacerbation, Progression, or Severe Exacerbation? @ -No Poses a threat to life or bodily function? How? (Chest pain, USA, SC, pneumonia, PE, COPD, DKA, ARF, appy, cholecystitis, CVA, Diverticulitis, Homicidal, Suicidal, threat to staff... and all critical care pts) @ -Possibly - Lab Data Result diagrams: 06/03/23 19:27 06/03/23 18:22 Lab Results 06/03/23 06/03/23 06/03/23 Range/Units 18:22 18:22 19:27 WBC 5.8 (3.8-10.6) k/uL RBC 2.89 L (3.80-5.40) m/uL Hgb 9.3 L (11.4-16.0) gm/dL Hct 29.2 L (34.0-46.0) % MCV 100.8 H (80.0-100.0) fL MCH 32.2 (25.0-35.0) pg MCHC 31.9 (31.0-37.0) g/dL RDW 14.8 (11.5-15.5) % Plt Count 104 L D (150-450) k/uL MPV 8.6 Neutrophils % 68 % Lymphocytes % 13 % Monocytes % 9 % Eosinophils % 6 % Basophils % 1 % Neutrophils # 4.0 (1.3-7.7) k/uL Lymphocytes # 0.8 L (1.0-4.8) k/uL Monocytes # 0.5 (0-1.0) k/uL Eosinophils # 0.4 (0-0.7) k/uL Basophils # 0.1 (0-0.2) k/uL Macrocytosis Slight PT 14.7 H (10.0-12.5) sec INR 1.4 H (<1.2) APTT 26.9 (22.0-30.0) sec Sodium 132 L (137-145) mmol/L Potassium 4.4 (3.5-5.1) mmol/L Chloride 107 (98-107) mmol/L Carbon Dioxide 18 L (22-30) mmol/L Anion Gap 7 mmol/L BUN 34 H (7-17) mg/dL Creatinine 1.22 H (0.52-1.04) mg/dL Est GFR (CKD-EPI)AfAm 46 (>60 ml/min/1.73 sqM) Est GFR (CKD-EPI)NonAf 40 (>60 ml/min/1.73 sqM) Glucose 101 H (74-99) mg/dL Calcium 7.4 L (8.4-10.2) mg/dL Total Bilirubin 2.2 H (0.2-1.3) mg/dL AST 48 H (14-36) U/L ALT 25 (4-34) U/L Alkaline Phosphatase 102 (38-126) U/L C-Reactive Protein 2.9 H (<1.0) mg/dL Total Protein 7.1 (6.3-8.2) g/dL Albumin 2.5 L (3.5-5.0) g/dL Disposition Clinical Impression: Lower extremity edema, Blistering rash, Bullous pemphigoid Disposition: HOME SELF-CARE Condition: Serious Prescriptions: Clobetasol Propionate/Emoll [Clobetasol Emulsion 0.05% Foam] 1 applic TOPICAL BID #100 gm Is patient prescribed a controlled substance at d/c from ED?: No Referrals: Marco Busch MD [Primary Care Provider] - 1-2 days Kareem Ramirez MD [STAFF PHYSICIAN] - 1-2 days Princess Ramirez MD [STAFF PHYSICIAN] - 1-2 days
[2023-06-03 19:08] LABS: INR 1.4 (<1.2); Partial Thromboplastin Time 26.9 sec (22.0-30.0); Prothrombin Time 14.7 sec (10.0-12.5)
[2023-06-03 19:21] LABS: ALT 25 U/L (4-34); African American GFR (CKD) 46 (>60 ml/min/1.73 sqM); Albumin 2.5 g/dL (3.5-5.0); Anion Gap 7 mmol/L; Blood Urea Nitrogen 34 mg/dL (7-17); Calcium 7.4 mg/dL (8.4-10.2); Carbon Dioxide 18 mmol/L (22-30); Chloride 107 mmol/L (98-107); Glucose 101 mg/dL (74-99); Non-African American GFR(CKD) 40 (>60 ml/min/1.73 sqM); Sodium 132 mmol/L (137-145); Total Bilirubin 2.2 mg/dL (0.2-1.3); Total Protein 7.1 g/dL (6.3-8.2)
[2023-06-03 19:32] LABS: AST 48 U/L (14-36); Alkaline Phosphatase 102 U/L (38-126); Potassium 4.4 mmol/L (3.5-5.1)
[2023-06-03 20:11] LABS: Basophils # (A) 0.1 k/uL (0-0.2); Basophils % (A) 1 %; Eosinophils # (A) 0.4 k/uL (0-0.7); Eosinophils % (A) 6 %; HCT 29.2 % (34.0-46.0); HGB 9.3 gm/dL (11.4-16.0); Lymphocytes # (A) 0.8 k/uL (1.0-4.8); Lymphocytes % (A) 13 %; MCH 32.2 pg (25.0-35.0); MCHC 31.9 g/dL (31.0-37.0); MCV 100.8 fL (80.0-100.0); Macrocytosis Slight; Mean Platelet Volume 8.6; Monocytes # (A) 0.5 k/uL (0-1.0); Monocytes % (A) 9 %; Neutrophils % (A) 68 %; RBC 2.89 m/uL (3.80-5.40); RDW 14.8 % (11.5-15.5); WBC 5.8 k/uL (3.8-10.6)
[2023-06-03 20:14] LABS: Platelet Count 104 k/uL (150-450)
[2023-06-03 20:18] VITALS: BP 136/77; PULSE 74; RESP 20
[2023-06-03 21:07] LABS: C Reactive Protein 2.9 mg/dL (<1.0)
== END 2023-06-03 21:35 | disposition home or self-care (01) ==
LOC: EC 17:22
DX: T14.8XXA Other injury of unspecified body region, initial encounter (principal); L12.0 Bullous pemphigoid; R60.0 Localized edema; Z88.0 Allergy status to penicillin; Z88.2 Allergy status to sulfonamides; Z88.5 Allergy status to narcotic agent; Z88.8 Allergy status to other drugs, medicaments and biological substances; Z88.1 Allergy status to other antibiotic agents
CPT/HCPCS: 36415; 80053; 85025; 85610; 85730; 86140; 99284